=== PATIENT | female | born 1970 | race Caucasian/White ===

== ENCOUNTER → 2018-05-25 08:08 | Outpatient (CLI) | payer BC, SELFPAY ==
--- NOTE | 2018-05-25 08:30 | US_ITS ---
US abdomen limited HISTORY:Right upper quadrant pain. Nausea vomiting ORDERING PHYSICIAN: Roxy Diop PATIENT AGE: 47 years Comparison: None Sagittal, transverse and decubitus imaging of the gallbladder was performed. GALLBLADDER - sludge is clearly seen within the gallbladder but no apparent shadowing stones. No stones are evident. There is no gallbladder wall thickening. Common duct is normal in diameter. Measuring less than 3 mm at hilum of liver. Liver: Unremarkable no focal lesions no bili ductal dilatation portal vein normal direction flow. Pancreas: Unremarkable. Fairly well visualized without the head body and medial tail. Right kidney: Unremarkable appearing. No hydronephrosis. Normal measuring 11.7 seem in length with cortex modest but adequate maintained. IMPRESSION:======= Negative gallbladder ultrasound. No stones evident.
== END ==
PROVIDERS: Family Provider Family Medicine; PCP Family Medicine; Visit Provider Nurse Practitioner Family
DX: R10.10 Upper abdominal pain, unspecified (principal); R11.2 Nausea with vomiting, unspecified
CPT/HCPCS: 76705

== ENCOUNTER → 2018-06-03 12:00 | Outpatient (CLI) | payer BC, SELFPAY ==
--- NOTE | 2018-06-03 12:10 | NM_ITS ---
NM hepatobiliary wo pharm HISTORY: Right upper quadrant pain ITS.REASON: ABD PAIN,N/V ORDERING PHYSICIAN: Charlie Alvarez MD PATIENT AGE: 47 years COMPARISON: None DOSE: 7.07 mCi tc choletec fatty meal ensure. No complaints with fatty meal FINDINGS: Homogeneous activity is present within the hepatic parenchyma. Activity is present in the gallbladder by 15 minutes. Activity is present in the small bowel by 30 minutes. The gallbladder ejection fraction is calculated to be 45% which is within normal limits. The patient did not report pain or other symptoms during CCK infusion. IMPRESSION: Unremarkable hepatobiliary scan and gallbladder ejection fraction. No evidence of common or cystic duct obstruction with normal gallbladder ejection fraction
== END ==
PROVIDERS: Family Provider Family Medicine; PCP Family Medicine; Visit Provider Family Medicine
DX: R10.10 Upper abdominal pain, unspecified (principal); R11.2 Nausea with vomiting, unspecified
CPT/HCPCS: 78226; A9537

== ENCOUNTER 2024-04-27 17:51 | Emergency (ER) | payer BC, SELFPAY ==
[2024-04-27 17:52] VITALS: BP 135/67; PULSE 94; RESP 18; TEMP 36.9; O2SAT 99; BMI 37.4
--- NOTE | 2024-04-27 17:56 | PC.NURSE ---
Davidson ESTRADA at BS for pt eval
--- NOTE | 2024-04-27 18:05 | ED_ITS ---
<Statement entered by Beatriz Lawson DO - 04/27/24 22:07> I was consulted by the MADYSON, and we discussed the complexity of the problems being addressed. I approved the treatment and management plan for this patient's care in the emergency department, thus performing a substantive portion of the medical decision making. Beatriz Lawson DO Discharge Plan Disposition Patient Disposition: Home, Self-Care Condition: Good Referrals Follow up/Referrals: Charlie Alvarez MD [Primary Care Provider] - See instructions Activity Restrictions/Add. Instructions Additional Instructions/Restrictions: Follow-up with your PCP for further workup of lower extremity swelling. Return to ER for any worsening signs or symptoms as needed. Clinical Impressions Clinical Impression: Dependent edema Instructions Patient Instructions: DI for Dependent Edema Discharge ED Provider: Beatriz Lawson General Adult HPI <OSMAN Hu - Last Filed: 04/27/24 21:54> General Chief complaint: Extremity Problem,Nontraumatic Stated complaint: both legs are swelling and painful Time Seen by Provider: 04/27/24 18:00 History of Present Illness HPI narrative: Patient presents for evaluation of bilateral lower extremity swelling. Patient states that she has noticed that her bilateral lower extremities have been swelling and that she has some tenderness. However patient most recently had a vacation trip to [place] however she flew. 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 Patient denies trauma fever chills hemoptysis hematochezia melena nausea vomit diarrhea chest pain or shortness of breath. Related Data Allergies Allergy/AdvReac Type Severity Reaction Status Date / Time shellfish derived Allergy Unknown SWELLS Unverified 10/21/17 15:00 [From SHELLFISH (FOOD/DRUG)] THROAT Sulfa (Sulfonamide Allergy Unknown I-HIVES Unverified 10/21/17 15:00 Antibiotics) [SULFA (SULFONAMIDE ANTIBIOTICS)] From SHELLFISH (FOOD/DRUG) Allergy Unknown SWELLS Uncoded 10/21/17 15:00 THROAT PFSH <OSMAN Hu - Last Filed: 04/27/24 21:54> [facility] Disclaimer: The information contained in this section may have been updated after the patient was seen, as this information can be updated by other users. Social History (Updated 06/25/24 @ 21:54 by OSMAN Hu) Smoking Status: Former smoker alcohol intake: current alcohol intake frequency: holidays/special occasions only current occupational status: employed Travel in the last 8 weeks: Inside the [place] <OSMAN Hu - Last Filed: 04/27/24 21:54> ROS Obtained: Yes Systems reviewed as appropriate & no additional complaints except as documented Physical Exam <OSMAN Hu - Last Filed: 04/27/24 21:54> General General appearance: alert and in no apparent distress Respiratory Respiratory exam: Present normal lung sounds bilaterally Cardiovascular Cardiovascular exam: Present regular rate and normal rhythm Abdominal Exam Abdominal exam: Present soft and normal bowel sounds; Absent tenderness Extremities Exam Extremities exam: Present normal inspection, full ROM and edema (Patient has bilateral, left greater than right pitting edema without evidence of erythema or cellulitis or induration.) Back Exam Back exam: Present normal inspection and full ROM Neurological Exam Neurological exam: Present alert and oriented X3 Medical Decision Making <OSMAN Hu - Last Filed: 04/27/24 21:54> Medical Records Medical records reviewed: Yes I reviewed the patient's medical records. Morgan Inquiry Pt receiving controlled substance: No Vital Signs: 04/27/24 17:52 04/27/24 19:26 04/27/24 19:31 Temperature 98.4 F Temperature Source Oral Pulse Rate 94 H 93 H Pulse Rate [Right] 94 H Respiratory Rate 18 Blood Pressure 115/62 127/71 Blood Pressure [Right Arm] 135/67 Blood Pressure Mean 79 78 Blood Pressure Mean [Right Arm] 89 02 Sat by Pulse Oximetry 99 99 99 Oxygen Delivery Method Room Air 04/27/24 21:04 Temperature 98.0 F Temperature Source Pulse Rate 80 Pulse Rate [Right] Respiratory Rate 20 Blood Pressure 128/79 Blood Pressure [Right Arm] Blood Pressure Mean Blood Pressure Mean [Right Arm] 02 Sat by Pulse Oximetry Oxygen Delivery Method Room Air Lab Data Lab results reviewed: Yes I reviewed the patient's lab results. Lab Results 04/27/24 19:11: Urine Color Yellow, Urine Appearance Clear, Urine pH 6.0, Ur Specific [place] 1.020, Urine Protein Negative, Urine Glucose (UA) Negative, Urine Ketones Negative, Urine Blood Negative, Urine Nitrate Negative, Urine Bilirubin Negative, Urine Urobilinogen 0.2, Ur Leukocyte Esterase Negative, Urine RBC None, Urine WBC None, Ur Squamous Epith Cells 3-5, Urine Bacteria None 04/27/24 20:00: WBC 12.4 H, RBC 4.41, Hgb 13.4, Hct 40.6, MCV 92.2, MCH 30.4, MCHC 33.0, RDW 13.7, Plt Count 456 H, MPV 7.5, Neut % (Auto) 59.0, Lymph % (Auto) 31.3, Creek % (Auto) 5.4, Eos % (Auto) 3.4, Baso % (Auto) 0.9, Neut # (Auto) 7.3, Lymph # (Auto) 3.9, Creek # (Auto) 0.7, Eos # (Auto) 0.4, Baso # (Auto) 0.1, D-Dimer 0.41, Sodium 137, Potassium 4.1, Chloride 105, Carbon Dioxide 23, Anion Gap 13.1, BUN 18 H, Creatinine 1.00, Estimated Creat Clear 107, Estimated GFR 58 L, Est GFR ( Amer) 71, Glucose 107 H, Calcium 9.2, Magnesium 2.0, Total Bilirubin 0.3, AST 30, ALT 32, Alkaline Phosphatase 83, NT-Pro-B Natriuret Pep 43.3, Total Protein 7.2, Albumin 4.1, Globulin 3.1, Albumin/Globulin Ratio 1.3, TSH 2.48 04/27/24 20:00 04/27/24 20:00 Orders (Tests/Meds): ED MEDICATIONS Discontinued Medications Generic Name Dose Route Start Last Admin Trade Name Dmq PRN Reason Stop Dose Admin Acetaminophen 1,000 mg 04/27/24 18:07 04/27/24 18:21 Acetaminophen 500mg Tab PO 04/27/24 18:08 1,000 mg ONCE ONE Administration ORDERS Category Date Time Status Chest XR -- portable [XR chest portable] Stat Exams 04/27/24 18:07 Completed BNP [NT Pro Brain Natriuretic Pep.] Stat Lab 04/27/24 20:00 Completed CBC w/Auto Diff [Complete Blood Count Auto Diff] Stat Lab 04/27/24 20:00 Completed CMP [Comprehensive Metabolic Panel] Stat Lab 04/27/24 20:00 Completed D-Dimer Stat Lab 04/27/24 20:00 Completed Magnesium Stat Lab 04/27/24 20:00 Completed TSH [Thyroid Stimulating Hormone] Stat Lab 04/27/24 20:00 Completed UA [Urinalysis and Microscopic] Stat Lab 04/27/24 19:11 Completed Medical Decision Narrative: In summary patient is a 53-year-old female who presents to the emergency department for evaluation of lower extremity edema. Patient is dynamically stable upon arrival, afebrile. Physical exam is remarkable for bilateral dependent edema that is pitting, left lower extremity greater than right lower extremity. Patient has some Tenderness globally but no focal induration or palpable cords no erythema. Patient is neurovascularly intact distally with good pulses.. Differential diagnosis includes venous insufficiency versus lymphedema versus DVT etc. Initial workup will be conducted with hematologic labs plain film chest x-ray urinalysis. Initial interventions include Lasix Toradol Tylenol. Initial workup reviewed by me shows that her hematologic labs are nonactionable and her plain film chest x-ray shows no acute processes.. Upon repeat evaluation patient did report some improvement in her discomfort but has not been able to notice enough diuresis yet to tell a difference in her feet. Given this patient is appropriate for discharge with close follow-up with her PCP for further workup as an outpatient for dependent edema. Patient verbalized understanding and agreement. <Beatriz Lawson, DO - Last Filed: 04/27/24 22:07> Vital Signs: 04/27/24 17:52 04/27/24 19:26 04/27/24 19:31 Temperature 98.4 F Temperature Source Oral Pulse Rate 94 H 93 H Pulse Rate [Right] 94 H Respiratory Rate 18 Blood Pressure 115/62 127/71 Blood Pressure [Right Arm] 135/67 Blood Pressure Mean 79 78 Blood Pressure Mean [Right Arm] 89 02 Sat by Pulse Oximetry 99 99 99 Oxygen Delivery Method Room Air 04/27/24 21:04 Temperature 98.0 F Temperature Source Pulse Rate 80 Pulse Rate [Right] Respiratory Rate 20 Blood Pressure 128/79 Blood Pressure [Right Arm] Blood Pressure Mean Blood Pressure Mean [Right Arm] 02 Sat by Pulse Oximetry Oxygen Delivery Method Room Air Lab Data Lab Results 04/27/24 19:11: Urine Color Yellow, Urine Appearance Clear, Urine pH 6.0, Ur Specific [place] 1.020, Urine Protein Negative, Urine Glucose (UA) Negative, Urine Ketones Negative, Urine Blood Negative, Urine Nitrate Negative, Urine Bilirubin Negative, Urine Urobilinogen 0.2, Ur Leukocyte Esterase Negative, Urine RBC None, Urine WBC None, Ur Squamous Epith Cells 3-5, Urine Bacteria None 04/27/24 20:00: WBC 12.4 H, RBC 4.41, Hgb 13.4, Hct 40.6, MCV 92.2, MCH 30.4, MCHC 33.0, RDW 13.7, Plt Count 456 H, MPV 7.5, Neut % (Auto) 59.0, Lymph % (Auto) 31.3, Creek % (Auto) 5.4, Eos % (Auto) 3.4, Baso % (Auto) 0.9, Neut # (Auto) 7.3, Lymph # (Auto) 3.9, Creek # (Auto) 0.7, Eos # (Auto) 0.4, Baso # (Auto) 0.1, D-Dimer 0.41, Sodium 137, Potassium 4.1, Chloride 105, Carbon Dioxide 23, Anion Gap 13.1, BUN 18 H, Creatinine 1.00, Estimated Creat Clear 107, Estimated GFR 58 L, Est GFR ( Amer) 71, Glucose 107 H, Calcium 9.2, Magnesium 2.0, Total Bilirubin 0.3, AST 30, ALT 32, Alkaline Phosphatase 83, NT-Pro-B Natriuret Pep 43.3, Total Protein 7.2, Albumin 4.1, Globulin 3.1, Albumin/Globulin Ratio 1.3, TSH 2.48 Orders (Tests/Meds): ED MEDICATIONS Discontinued Medications Generic Name Dose Route Start Last Admin Trade Name Freq PRN Reason Stop Dose Admin Acetaminophen 1,000 mg 04/27/24 18:07 04/27/24 18:21 Acetaminophen 500mg Tab PO 04/27/24 18:08 1,000 mg ONCE ONE Administration ORDERS Category Date Time Status Chest XR -- portable [XR chest portable] Stat Exams 04/27/24 18:07 Completed BNP [NT Pro Brain Natriuretic Pep.] Stat Lab 04/27/24 20:00 Completed CBC w/Auto Diff [Complete Blood Count Auto Diff] Stat Lab 04/27/24 20:00 Completed CMP [Comprehensive Metabolic Panel] Stat Lab 04/27/24 20:00 Completed D-Dimer Stat Lab 04/27/24 20:00 Completed Magnesium Stat Lab 04/27/24 20:00 Completed TSH [Thyroid Stimulating Hormone] Stat Lab 04/27/24 20:00 Completed UA [Urinalysis and Microscopic] Stat Lab 04/27/24 19:11 Completed ECG Data Tracing #1: I reviewed this ECG and interpreted as documented below: Normal sinus rhythm with a ventricular rate of [address] changes concerning for ischemia. Normal axis and intervals. ECG initial impression date: 04/27/24 ECG initial impression time: 18:30 Critical Care <OSMAN Hu - Last Filed: 04/27/24 21:54> Critical Care Time Critical Care Time: No
--- NOTE | 2024-04-27 18:07 | XR_ITS ---
PROCEDURE INFORMATION: Exam: XR Chest Exam date and time: 04/27/2024 6:30 PM Age: 53 years old Clinical indication: Other: Peripheral edema TECHNIQUE: Imaging protocol: Radiologic exam of the chest. Views: 1 view. COMPARISON: No relevant prior studies available. FINDINGS: Lungs: Unremarkable. No consolidation. Pleural spaces: Unremarkable. No pleural effusion. No pneumothorax. Heart/Mediastinum: Unremarkable. No cardiomegaly. Bones/joints: Unremarkable. IMPRESSION: No acute findings.
[2024-04-27] MEDS: ACETAMINOPHEN 500MG TAB 1000 MG PO (18:21)
--- NOTE | 2024-04-27 18:30 | ECG_ITS ---
APPROVED REPORT Exam: Resting ECG HR:85 bpm ECG Measurements Heart Rate 85 AXES MS 172 P 69 QRSd 79 QRS 59 QT 357 T 57 QTc 399 Conclusion SINUS RHYTHM NORMAL ECG Electronically signed by : TOMI GALAN, 04/27/2024 19:59:13
--- NOTE | 2024-04-27 18:36 | PC.NURSE ---
[facility] at BS for XRAY
[2024-04-27 19:20] LABS: Microscopic, Urine URINE MICROSCOPIC (MICROSCOPIC)
[2024-04-27 19:26] VITALS: BP 115/62; PULSE 94; O2SAT 99
[2024-04-27 19:27] LABS: Appearance,Urine CLEAR (Clear); Bilirubin,Urine Negative (Negative); Blood, Urine Negative (Negative); Color,Urine YELLOW (Yellow); Glucose,Urine (UA) Negative (Negative); Ketones,Urine Negative (Negative); Leukocyte Esterase,Urine Negative (Negative); Nitrate,Urine Negative (Negative); Protein,Urine Negative (Negative); Urobilinogen,Urine 0.2 EU/dl (0.2)
[2024-04-27 19:31] VITALS: BP 127/71; PULSE 93; O2SAT 99
[2024-04-27 20:10] LABS: Basophils # 0.1 K/mm3 (0-0.2); Basophils % 0.9 % (0.1-2.0); Eosinophils # 0.4 K/mm3 (0.0-0.4); Eosinophils % 3.4 % (0.1-12.0); Hematocrit 40.6 % (37.0-47.0); Hemoglobin 13.4 g/dL (12.2-16.2); Lymphocytes # 3.9 K/mm3 (0.7-4.5); Lymphocytes % 31.3 % (10-50); Mean Corpuscular Hemoglobin 30.4 pg (27.0-31.2); Mean Corpuscular Volume 92.2 fl (81-99); Mean Platelet Volume 7.5 fl (7.4-10.4); Monocytes # 0.7 K/mm3 (0.1-1.0); Monocytes % 5.4 % (1.7-9.3); Neutrophils # 7.3 K/mm3 (1.8-7.8); Platelet Count 456 K/mm3 (142-424); Red Blood Count 4.41 M/mm3 (4.20-5.40); Red Cell Distribution Width 13.7 % (11.5-17.5); White Blood Count 12.4 K/mm3 (4.8-10.8)
[2024-04-27 20:13] LABS: Chloride 105 mmol/L (98-107); Potassium 4.1 mmoL/L (3.5-5.1); Sodium 137 mmol/L (136-145)
[2024-04-27 20:15] LABS: Alanine Aminotransferase 32 U/L (12-78); Aspartate Amino Transferase 30 U/L (14-36); Blood Urea Nitrogen 18 mg/dl (7-17); Creatinine Clearance Estimated 107 mL/min (50-200); Estimated Glomerular Filt Rate 58 ml/min (>60); GFR (African American) 71 ML/MIN (>60)
[2024-04-27 20:16] LABS: Albumin Level 4.1 g/dl (3.5-5.0); Albumin/Globulin Ratio 1.3 (1.1-1.8); Alkaline Phosphatase 83 U/L (38-126); Anion Gap 13.1 mEq/L (5-15); Bilirubin,Total 0.3 mg/dl (0.2-1.3); Calcium 9.2 mg/dl (8.4-10.2); Carbon Dioxide 23 mmol/L (22.0-30.0); Globulin 3.1 g/dL (1.3-3.2); Glucose 107 mg/dl (74-100); Total Protein,Serum 7.2 g/dl (6.3-8.2)
[2024-04-27 20:21] LABS: D-Dimer 0.41 ug/mL (0.0-0.5)
[2024-04-27 20:26] LABS: NT Pro Brain Natriuretic Pep. 43.3 pg/mL (0-125)
[2024-04-27 20:47] LABS: Thyroid Stimulating Hormone 2.48 uIU/mL (0.465-4.68)
[2024-04-27 21:04] VITALS: BP 128/79; PULSE 80; RESP 20; TEMP 36.7; O2SAT 98
== END 2024-04-27 21:05 | disposition home or self-care (01) ==
PROVIDERS: Physician Assistant; Emergency Provider Emergency Medicine; PCP Family Medicine
DX: R60.0 Localized edema (principal); M79.604 Pain in right leg; M79.605 Pain in left leg
CPT/HCPCS: 71045; 80053; 81001; 83735; 83880; 84443; 85025; 85378; 93005; 99284

== ENCOUNTER 2025-04-04 11:45 | Outpatient (CLI) | payer BC, SELFPAY ==
--- NOTE | 2025-04-04 11:52 | XR_ITS ---
FINAL REPORT TECHNIQUE: Skull series, 4 views CLINICAL HISTORY: Occipital headaches since Friday. Dizziness. Tingling. COMPARISON: None FINDINGS: SKULL SERIES: 4 views of the skull failed to reveal any evidence of fracture. No air-fluid levels are noted in the paranasal sinuses. Postoperative changes are noted to the mandibles bilaterally. IMPRESSION: No acute bony abnormality identified, no air-fluid levels are noted in the paranasal sinuses. Reviewed, Interpreted and Dictated by Shawna Hall MD Transcribed by Marisa Bartlett Authenticated and [facility]
== END 2025-04-04 23:59 | disposition home or self-care (01) ==
LOC: RAD 11:47
PROVIDERS: PCP Family Medicine; Visit Provider Nurse Practitioner Family
DX: R51.9 Headache, unspecified (principal)
CPT/HCPCS: 70260

== ENCOUNTER 2025-04-08 13:44 | Outpatient (CLI) | payer BC, SELFPAY ==
--- NOTE | 2025-04-08 13:51 | US_ITS ---
FINAL REPORT CLINICAL HISTORY: NECK SWELLING COMPARISON: None FINDINGS: Limited sonographic images were obtained of the soft tissues in the neck. The right parotid gland is homogeneous. There is a 1.5 cm lymph node adjacent to the right parotid gland. There are several other mildly enlarged benign-appearing right cervical lymph nodes. Limited evaluation of the right thyroid reveal several right thyroid nodules including colloid cysts. The left parotid gland and left submandibular salivary gland are without abnormality. There is a mildly enlarged 1.8 cm left cervical lymph node. IMPRESSION: Mildly enlarged benign-appearing bilateral cervical lymph nodes are favored to be reactive. Follow-up if indicated. Thyroid nodules. Consider dedicated thyroid ultrasound. Reviewed, Interpreted and Dictated by Shawna Hall MD Transcribed by Ana Morton Authenticated and [facility]
--- OUTSIDE RECORDS SUMMARY | 2025-04-08 13:51 | XMS_ITS | Continuity of Care Document ---
Author Organization [place] - [facility] Address [address] [place] [address] Care Team Providers Care Corporate Executive Name Role Phone KAVYA PRIETO Primary Care Provider [phone] Assessment No assessment recorded. Plan of Treatment Reminders Order Date Submit Date Provider Last Modified By Organization Details Last Modified Time Details Appointments OV EST 20 2024 10:00A M Xavi Clements, DNP, DISABILITY HEARING OFFICER, AXLE POLISHER-C Not available Not available Not available Lab HbA1c (hemoglo bin A1c), blood 2024 025 JAQUAN [facility], [address], [place], [address], 03/25/2025 18:35:58 iron + TIBC + ferritin , serum 2024 025 JAQUAN [facility], [address], [address], [place], [address], 03/25/2025 18:35:55 prealbum in, serum 2024 025 JAQUAN [facility], [address], [address], [place], [address], 03/25/2025 18:36:02 thiamine , QN, blood 2024 025 JAQUAN [facility], [address], [address], [place], [address], 03/25/2025 18:36:01 methylma lonate, QN, serum or plasma 2024 025 JAQUAN [facility], [address], [address], [place], [address], 03/25/2025 18:36:01 vitamin D, 25-hydro xy, total, serum 2024 025 JAQUAN [facility], [address], [address], [place], [address], 03/25/2025 18:36:00 vitamin E, serum 2024 025 JAQUAN [facility], [address], [address], [place], [address], 03/25/2025 18:35:58 vitamin A (retinol ), serum 2024 025 JAQUAN [facility], [address], [address], [place], [address], 03/25/2025 18:36:00 folate, serum 2024 025 JAQUAN [facility], [address], [address], [place], [address], 03/25/2025 18:35:59 CBC w/ auto diff 2024 025 JAQUAN [facility], [address], [address], [place], [address], 03/25/2025 18:35:56 CMP, serum or plasma 2024 025 JAQUAN [facility], [address], [address], [place], [address], 03/25/2025 18:35:57 TSH + free T4, serum 2024 025 JAQUAN [facility], [address], [address], [place], [address], 03/25/2025 18:35:55 lipid panel, serum 2024 025 JAQUAN [facility], [address], [address], [place], [address], 03/25/2025 18:35:57 Referral None recorded . Procedures None recorded . Surgeries None recorded . Imaging None recorded . Medication Orders None recorded . Patient TargetsNo targets recorded. Patient InstructionsNo instructions recorded. Reason for Referral None Reported. Problems Name Problem SNOMED Code Status Onset Date Resolution Date Notes Provider Name and Address Organization Details Recorded Time Folic acid deficiency 746028327 Active 2024 Xavi Clements, YAS, DISABILITY HEARING OFFICER, AXLE POLISHER-C [address] [facility] [address], [place], [address] , [place] - [facility] - [place] & [place] 5 10:41:38 Vitamin D deficiency 37190469 Active 2024 Xavi Clements, YAS, DISABILITY HEARING OFFICER, AXLE POLISHER-C [address] [facility] [address], [place], [address] , [place] - [facility] - [place] & [place] 5 08:34:50 Hypertensive disorder 86950835 Active 2023 KHRIS BUSTOS, AXLE POLISHER [address] [facility], [place], [address] , [place] - [facility] - [place] & [place] 4 12:10:13 Type 2 diabetes mellitus 73998669 Active 2023 KHRIS BUSTOS NP [address], [place], [address] , [place] - [facility] - [place] & [place] 4 12:38:06 Obesity 862604600 Active 2023 KHRIS BUSTOS AXLE POLISHER [address] [facility] [address], [place], [address] , [place] - [facility] - [place] & [place] 4 12:38:14 Hyperlipidemi a 71690119 Active 2023 KHRIS BUSTOS NP [address], [place], [address] , [place] - [facility] - [place] & [place] 4 12:39:19 Morbid obesity 090333639 Active 2023 Xavi Clements, DNP, DISABILITY HEARING OFFICER, AXLE POLISHER-C [address], [place], [address] , [place] - [facility] & [place] 10:52:23 Problem Notes None recorded. Procedures Surgical History Date Name Laterality Status Provider Name and Address Organization Details Recorded Time 06/08/20 24 laparoscopic sleeve gastrectomy completed Michelle Tony [place] - [facility] & [place] 06/15/2024 10:04:04 01/09/20 24 completed Merry RODRIGUEZ - [facility] & [place] 03/17/2024 13:20:02 10/03/20 22 Date of Last Pap Smear completed Merry RODRIGUEZ - [facility] & [place] 03/17/2024 13:20:02 11/03/19 19 Other completed Merry RODRIGUEZ - [facility] & [place] 03/17/2024 13:20:02 11/03/19 18 excision of ganglion cyst completed WILLIAM BUSTOS NP [address], [place], [address], [facility] - [facility] & [place] 02/24/2024 13:03:27 11/03/19 01 Tmj reconstruction completed WILLIAM BUSTOS NP [address], [place], [address], [place] - [facility] & [place] 02/24/2024 13:03:09 11/03/19 01 Head or Neck Surgery completed Merry Barnett [facility] & [place] 03/17/2024 13:20:02 11/03/18 77 Tonsillectomy/Bruno oidectomy completed Merry RODRIGUEZ - [facility] & [place] 03/17/2024 13:20:02 extraction of wisdom tooth completed Karla RODRIGUEZ - [facility] & [place] 02/23/2024 13:23:44 Tonsillectomy completed Karla Mccarthy [facility] & [place] 02/23/2024 13:24:00 Imaging Results None recorded. Procedure Notes None recorded. Medical Equipment None Reported. Allergies Allergen ID Allergen Name Allergen Category Reaction Reaction Severity Criticality Documentation Date Start Date Code Code System Note Provider Name and Address Organization Details Recorded Time 928018 Substance with sulfonami de structure and antibacte rial mechanism of action (substanc e) medicatio n hives nausea severe moderate Not available 02/24/2024 49403 8003 SNOMED JENNIFER [facility] & [place] 11:13:01 073186 shellfish derived food,medi cation anaphylax is severe Not available 02/24/2024 78301 UNK JENNIFER [facility] & [place] 11:15:27 Medications Name Sig Start Date Stop Date Status Note LastModified by Organization Details LastModified Time amoxicillin 500 mg capsule 05/26 completed Not Available Not Available Not Available bupropion HCl SR 150 mg tablet,12 hr sustained-r elease TAKE 1 TABLET BY MOUTH ONCE DAILY IN THE MORNING FOR 90 DAYS active Not Available Not Available No t Available azithromyci n 250 mg tablet 12/13 completed Not Available Not Available Not Available clarithromy angie 500 mg tablet Take 1 tablet every 12 hours by oral route for 14 days. 05/26 completed Not Available Not Available Not Available phentermine 37.5 mg tablet TAKE 1 TABLET BY MOUTH IN THE MORNING AND 1/2 (ONE-HALF ) TAB IN THE MID AFTERNOON 02/23 completed Not Available Not Available Not Available amoxicillin 500 mg tablet Take 2 tablets every 12 hours by oral route for 14 days. 05/26 completed Not Available Not Available Not Available ondansetron 8 mg disintegrat ing tablet PLACE 1 TABLET UNDER THE TONGUE AND ALLOW TO DISSOLVE 2 TIMES EACH DAY NEEDED 09/10 completed Not Available Not Available Not Available gabapentin 300 mg capsule TAKE 1 CAPSULE 3 TIMES EACH DAY FOR 7 DAYS 06/15 completed Not Available Not Available Not Available omeprazole 20 mg capsule,del ayed release TAKE 1 CAPSULE EVERY 12 HOURS active Not Available Not Available No t Available furosemide 20 mg tablet TAKE 1 TABLET BY MOUTH ONCE DAILY 06/15 completed Not Available Not Available Not Available lisinopril 10 mg-hydrochl orothiazide 12.5 mg tablet TAKE 1 TABLET 1 TIME EACH DAY active Not Available Not Available No t Available cholecalcif josé antonio (vitamin D3) 1,250 mcg (50,000 unit) capsule TAKE 1 CAPSULE 1 TIME EACH WEEK 03/21 completed Not Available Not Available Not Available potassium gluconate 595 mg (99 mg) tablet Take by oral route. active Not Available Not Available No t Available Centrum Silver Women active Not Available Not Available Not Available Ozempic 0.25 mg or 0.5 mg (2 mg/3 mL) subcutaneou s pen injector INJECT 0.5 MG SUBCUTANE OUSLY ONCE A WEEK 05/26 completed Not Available Not Available Not Available Vitals Date Recorded Body height Body temperature Body mass index (BMI) Body weight Heart rate Systolic blood pressure Diastolic blood pressure Provider Name and Address Organization Details Last Updated DateTime 5 165.1 cm 98.3 [degF] 32.4 kg/m2 73140.5 1 g 74 /min 123 mm[Hg] 84 mm[Hg] Michelle Chavo [facility] & [place] 08:29:09 Social History Question Answer Notes LastModified by Organizat ion Details LastModified Time Tobacco Smoking Status Former Smoker DARREN COLEMAN MD [address] [facility] [address], [place], [address], [facility] & [place] 05/26/2024 13:05:25 Do You Have An Advance Directive? No [email or web address] Information not available 03/17/2024 Are You Blind Or Do You Have Difficulty Seeing? No [email or web address] Information not available 03/17/2024 What Is Your Level Of Caffeine Consumption? Moderate Information not available 09/10/2024 When Did You Quit Smoking? 1-5yearssince cristobal arriaga Information not available 05/26/2024 What Was The Date Of Your Most Recent Tobacco Screening? 02/21/2024 [email or web address] Information not available 03/17/2024 Are You Passively Exposed To Smoke? Yes [email or web address] Information not available 03/17/2024 How Much Tobacco Do You Smoke? No [email or web address] Information not available 05/26/2024 How Many Years Have You Smoked Tobacco? 20 [email or web address] Information not available 03/17/2024 Sex: Unknown Functional Status Question Answer Note LastModified by Organizat ion Details LastModified Time Do you use any illicit or recreational drugs? No [email or web address] Information not available 02/23/2024 What is your level of alcohol consumption? Occasional [email or web address] Information not available 03/17/2024 Do you or have you ever used smokeless tobacco? Never used smokeless tobacco [email or web address] Information not available 03/17/2024 What is your exercise level? Occasional [email or web address] Information not available 03/17/2024 Mental Status Question Answer Note LastModified by Organization D etails LastModified Time Do you feel stressed (tense, restless, nervous, or anxious, or unable to sleep at night)? [id number] [email or web address] Information not available 03/17/2024 Family History Relationship Description Onset Age of this Age Resolved Age Notes LastModified by Organization Details LastModified Time Maternal Grandmother Disorder of endocrine system pt. added direct ly (02/20) [email or web address] Not available 02/21/2024 13:55:53 Maternal Grandmother Hypertensive disorder pt. added direct ly (02/20) [email or web address] Not available 02/21/2024 13:56:10 Maternal Grandmother Myocardial infarction pt. added direct ly (02/20) [email or web address] Not available 02/21/2024 13:56:24 Maternal Grandmother Cerebrovascu lar accident pt. added direct ly (02/20) [email or web address] Not available 02/21/2024 13:56:51 Maternal Grandmother Heart disease pt. added direct ly (02/20) [email or web address] Not available 02/21/2024 13:57:06 Maternal Aunt Disorder of endocrine system pt. added direct ly (02/20) [email or web address] Not available 02/21/2024 13:55:53 Maternal Aunt Hypertensive disorder pt. added direct ly (02/20) [email or web address] Not available 02/21/2024 13:56:10 Maternal Aunt Cerebrovascu lar accident pt. added direct ly (02/20) [email or web address] Not available 02/21/2024 13:56:52 Maternal Aunt Heart disease pt. added direct ly (02/20) [email or web address] Not available 02/21/2024 13:57:06 Mother Hypertensive disorder pt. added direct ly (02/20) [email or web address] Not available 02/21/2024 13:56:10 Mother Cerebrovascu lar accident pt. added direct ly (02/20) [email or web address] Not available 02/21/2024 13:56:52 Mother Asthma [email or web address] Not availabl e 03/21/2025 08:18:02 Father Hypertensive disorder pt. added direct ly (02/20) [email or web address] Not available 02/21/2024 13:56:10 Father Sleep disorder pt. added direct ly (02/20) [email or web address] Not available 02/21/2024 13:57:28 Brother Hypertensive disorder pt. added direct ly (02/20) [email or web address] Not available 02/21/2024 13:56:10 Maternal Grandfather Hypertensive disorder pt. added direct ly (02/20) [email or web address] Not available 02/21/2024 13:56:10 Paternal Grandmother Hypertensive disorder pt. added direct ly (02/20) [email or web address]-13 Not available 02/21/2024 13:56:10 Paternal Grandmother Myocardial infarction pt. added direct ly (02/20) [email or web address] Not available 02/21/2024 13:56:24 Paternal Grandmother Cerebrovascu lar accident pt. added direct ly (02/20) [email or web address] Not available 02/21/2024 13:56:52 Paternal Grandmother Heart disease pt. added direct ly (02/20) [email or web address] Not available 02/21/2024 13:57:06 Paternal Grandfather Hypertensive disorder pt. added direct ly (02/20) [email or web address]-13 Not available 02/21/2024 13:56:10 Paternal Grandfather Malignant neoplasm of lung [email or web address] Not available 03/03 08:18:02 Medical History Condition Response Obesity Y High Cholesterol N Diabetes Y Hypertension Y Gynecological History Statement/Question Response Abnormal Pap N 01/09/2024 Sexually Active? Y Menses Monthly N Date of Last Pap Smear 10/03/2022 Current Control Method IUD Obstetrics History GPAL:G 0 P 0 0 0 0 Past Encounters Encounter ID Performer Location Encounter Start Date Encounter Closed Date Diagnosis/Indication Diagnosis SNOMED-CT Code Diagnosis ICD10 Code Diagnosis Note [id number] Xavi Clements, DNP, DISABILITY HEARING OFFICER, AXLE POLISHER-C [facility] [address] [place] [address] 03/21/2025 08:16:52 03/21/2025 09:24:23 History of bariatric surgical procedure 478055898 Z98.84 The patient is doing well. The patient is instructed to continue their vitamins as directed. They are to continue advancing their diet as directed. They may start exercising but keep lifting less than 25 pounds for 2 more weeks. I will see them back in 3 weeks or one month from surgery. We will order their first set of labs at that time. I summarized the expectatio ns for the upcoming year. We will check labs at their one month visit from surgery, 3 months from surgery as well as at 6, 9, and 12 months from surgery. These labs will be ordered on the day of their appointmen t. They have the option to come to the appointmen t fasting and labs can be drawn that day at the hospital. If not, I expect these labs to be drawn within the week of ordering them. If they choose to have them drawn at another [facility] they are to make sure that the labs are sent to my office. These labs will be reviewed once received and the patient will be called with any significan t abnormalit ies and how they should be addressed. If they would like a copy of their labs they are welcome to request these and we will send a copy to them. If their labs and vitamin levels are adequate at 12 months then they will need lab checks every 6mth-12mth . They consent to understand this plan and agree to comply. Intentiona l weight loss 776281499 R63.8 History of gastrectomy 502882537 Z90.3 Advised qid intake 50% protein 5321-7398 calories/d y less than 100 carbs/dy Long discussion today of InBody results including PBF(percen t body fat) SMM (skeletal muscle mass) Visceral fat level level BMR Segmental Fat Analysis and Segmental Lean Analysis. Encouraged pt to take minimal calories as per BMR and to anticipate changes in SMM and PBF values not just total weight. Follow-up with Repeat CIRA in 3mth suggested Patient is status post bariatric surgery and at increased risk for vitamin deficienci es and malnutriti on. Bariatric vitamin panel ordered today. Patient will be contacted to correct any vitamin deficienci es. At [facility] risk of nutritional deficit 575917581 Z91.89 Folic acid deficiency 19 5765236 E53.8 Hyperlipidemia 29934321 E78.5 Hypertensive disorder 38 896950 I10 Type 2 josie betes mellitus 04824371 E11.9 Vitamin D deficiency 347 73510 E55.9 Obesity 560437044 E66.9 Health Concerns Section Related Observation LastModified by Organization Detai ls LastModified Time None Recorded Concern Status LastModified by Organization Details LastModified Time None Recorded Payers Encounter Date Sequence Insurance Name Policy Number Policy Rosales Covered Member ID Rosales Member ID Guarantor Name 03/21/2025 1 [place] [id number] 1 Timothy Peace [id number] Timothy Peace Notes Date Note Type Note Provider Name and Address Organization Details Recorded Time 03/21/2025 text/html Patient presents the office today for routine 9 month follow-up status post bariatric gastric sleeve gastrectomy Robotic assisted performed on 2023. Patient doing well. Reports q.i.d. small meal intake. Reports 60-70g/dy protein intake and good hydration.Patient is drinking 64 ounces of water a day.Daily Calories 1800Taking routine vitamins as advised. Hx of folic acid and Vit D deficiencyHeartbethanie rn/gastroesophage al reflux: deniesPt Denies : abdominal pain, prandial issues Nausea, Vomiting, bowel or bladder issuesTotal Weight loss Since last office visit has been 12.9 lbsPt is happy with their quality of life after Weight loss Surgery.Is able to tolerate all foods. Today's InBody reveals a skeletal muscle mass = 59.5 lb,body fat mass = 86.1 lb,BMI = 32.4Percent body fat = 44.2Basal Metabolic Rate = 1437 kilo calories Xavi Clements, DNP, DISABILITY HEARING OFFICER, AXLE POLISHER-C [address], [place], [address], [facility] - [place] - [place] & [place] 03/21/2025 08:55:56 OBGyn Episode No OBEpisode recorded.
--- OUTSIDE RECORDS SUMMARY | 2025-04-08 13:51 | XMS_ITS | Clinical Summary ---
Author Organization [employer] Address [address] [place] [address] Care Team Providers Care Complaint Inspector Name Role Phone Fritz Alvarez MD Primary Care Provider [phone] Encounters Date Type Department Care Team Description 01/24/2025 8:37 AM EDT - 01/24/2025 11:59 PM EDT Hospital Encounter [address] [place] [address] Visit for screening mammogram (Primary Dx) Discharge Disposition: Home or Self Care from Last 3 Months Family History Medical History Relation Name Comments Breast cancer Cousin Breast cancer Maternal Grandmother Relation Name Status Comments Cousin Alive Maternal Grandmother Social History Tobacco Use Types Packs/Day Years Used Date Smoking Tobacco: Never Assessed Interpersonal Safety Answer Date Record ed Family or friends hurt you Not on file 11/13 Family or friends insult you Not on file 09/2024 Family or friends threaten you Not on file 0 11/13/2023 Family or friends scream or curse at you Not on file 11/13/2023 Housing Stability Answer Date Recorded Living situation today Not on file Living situation problems Not on file 2023 Family and Community Support Answer Nael e Recorded Help with Day to Day Activities Not on file 11/13/2023 Feeling Lonely or Isolated Not on file 11/13 Educational Attainment Answer Date Sathish rded Speak language other than Indonesian at home Not on file 11/13/2023 Want help with school or training Not on file 11/13/2023 Depression Answer Date Recorded PHQ-2 Risk Not on file 11/13/2023 Disabilities Answer Date Recorded Difficulty concentrating Not on file 024 Difficulty doing errands alone Not on file 0 11/13/2023 Substance Use Answer Date Recorded Used prescription meds for non-medical reasons N ot on file 11/13/2023 Used illegal drugs past 12 months Not on file 11/13/2023 Comments Unknown Sex and Gender Information Value Date Recorded Sex Assigned at Not on file Legal Sex Female 5:29 PM CDT Gender Identity Not on file Sexual Orientation Not on file Plan of Treatment Upcoming Encounters Date Type Department Care Team (Late st Contact Info) Description 01/30/2026 9:00 AM EDT Appointment [address] [address] Health Maintenance Due Date Last Done Comments CT Colonography 1972 Colonoscopy 1972 Colorectal Cancer Screening 1972 FOBT/FIT 1972 Fit-DNA (Cologuard) 1972 Sigmoidoscopy 1972 Depression Screening (12+) 1984 Tobacco Cessation Counseling and Screening (12+) 1984 HIV Screening 1987 Hepatitis C Screening 1990 DTAP/TDAP/TD VACCINES (1 - Tdap) 1991 Pap Smear 1993 Lipid Panel 2017 Pneumococcal 50+ years (1 of 1 - PCV) 2022 Shingles Vaccine (Zoster) (1 of 2) 2022 COVID-19 VACCINE (4 - 2023-2 5 season) 2024 10/11/2021, 12/20/2020, 11/23/2020 Influenza Vaccine (Season Ended) 2025 Breast Cancer Screening 01/24/2027 01/25/20 25, 01/09/2024, 10/07/2022, Additional history exists Procedures Procedure Name Priority Date/Time Associated Diagnosis Comments MM DIGITAL MAMMO SCREEN WITH CARROL BILATERAL Routine 01/24/2025 8:57 AM EDT Visit for screening mammogram from Last 3 Months Results * MM digital mammo screen with carrol bilateral (01/24/2025 8:57 AM EDT) Anatomical Region Laterality Modality Breast Bilateral Mammography 01/24/2025 6:22 PM EDT Impressions 01/24/2025 6:31 PM EDT No mammographic evidence of malignancy BI-RADS CATEGORY: 2 , BENIGN FINDING(S). RECOMMENDED FOLLOW-UP: Annual mammography A letter including results and recommendations was sent to the patient. Density notification was included for patients with pattern 3 or 4 breast tissue. Patient information was entered into a reminder system with a target due date for the next mammogram. NOTES: Mammography does not detect approximately 10-15% of breast cancers. Physical examination of the breasts by a physician and regular monthly breast self examinations are integral parts of breast cancer screening. A normal mammogram does not exclude breast cancer if there is an abnormal finding on physical examination. When clinically indicated, a biopsy should not be postponed because of a normal mammogram report. Narrative 01/24/2025 6:31 PM EDT BILATERAL SCREENING DIGITAL MAMMOGRAPHY CLINICAL INDICATION: Routine screening TECHNIQUE: Bilateral CC and MLO views were obtained with digital acquisitions with 3D tomosynthesis. The study was read with the assistance of CAD. COMPARISON: Exams dating back to 2020 DENSITY: There are scattered areas of fibroglandular density FINDINGS: There are no spiculated masses, areas of distortion or suspicious calcifications. Right breast masses are unchanged. Areas of focal asymmetry left breast are stable. us Not In System Provider IMG MAMMOGRAPHY ORDERABLE S Final Result from Last 3 Months Insurance BLUE CROSS/BLUE SHIELD Care Teams Complaint Inspector Relationship Specialty Start Date End Date Fritz Alvarez MD [address] [place] [address] PCP - General Family Medicine 10/07/22
--- OUTSIDE RECORDS SUMMARY | 2025-04-08 13:51 | XMS_ITS | Data Portability ---
Author Organization [facility] CARINA Lord [place] [facility] Address [address] [place] [address] Care Team Providers Care Applied Psychology Chair Name Role Phone FRITZ ALVAREZ Primary Care Provider [phone] Assessment No assessment recorded. Plan of Treatment Reminders Order Date Submit Date Provider Last Modified By Organization Details Last Modified Time Details Appointments None record ed. Lab None record ed. Referral None record ed. Procedures None record ed. Surgeries None record ed. Imaging None record ed. Medication Orders None record ed. Patient TargetsNo targets recorded. Patient Instructions Encounter Date Encounter Id Patient Instructions Last Modified By Organization Details Last Modified Time 05/20/2022 [id number] Patient is instructed that it is ok to wash the operative hand with soap and water now that the sutures have been removed, but should not soak the hand in any type of water for 24 hours. Lotion is OK to use after 24 hours, but no Neosporin or other ointments. The 5 pound weight limit is still in effect for the next 4 weeks. Massage over the incision and up to the wrist crease will help to prevent excessive, thick scars. The palm is a callus, so the skin may peel off from around the incision; the patient can trim off any loose, skin with scissors if they need to. The surgical area does not need to be covered, and should not need to use the wrist splint on this side. Continue to do range of motion exercises to maintain or improve motion. She will be scheduled for a 4 week follow-up appointment. cate Not available 05/20/2022 11:09:02 Reason for Referral None Reported. Results Created Date Observation Date Name Description Value Unit Range Abnormal Flag Note LastModifiedBy Organization Detail LastModifiedTime 04/23/20 22 04/23/2022 nerve condu ction study /EMG, upper extre mity (PROC ) No observ ation record edFrederick riely Not Available 2021 12:56:58 Result Notes None recorded. Problems No Known Problems Procedures Surgical History Date Name Laterality Status Provider Name and Address Organization Details Recorded Time 04/23/20 22 Electromyography (EMG) with Nerve Conduction Study (NCV) completed Lexie Thrasher (Nicky) [facility] 04/23/2022 09:57:27 10/18/20 19 OT Therapeutic Exercise completed JANN JOSE, OTR/L, CHT [address] [place], [address], [facility] 10/18/2019 09:40:23 10/18/20 19 OT Manual Therapy completed JANN JOSE OTR/L, CHT [address] [place], [address], [facility] 10/18/2019 09:40:26 10/18/20 19 PT Hot/Cold Pack completed JANN JOSE OTR/L, CHT [address] [place], [address], [facility] 10/18/2019 08:42:45 09/28/20 19 OT Therapeutic Exercise completed JANN JOSE OTR/L, CHT [address] [place], [address], [facility] 09/28/2019 10:58:05 09/28/20 19 OT Manual Therapy completed JANN JOSE OTR/L, CHT [address] [place], [address], [facility] 09/28/2019 10:57:50 09/28/20 19 PT Hot/Cold Pack completed JANN JOSE OTR/L, CHT [address] [place], [address], [facility] 09/28/2019 10:04:39 09/20/20 19 OT Evaluation - Moderate complexity completed JANN JOSE OTR/L, CHT [address] [place], [address], [facility] 09/20/2019 10:27:09 09/15/20 19 Op Note completed CANDELARIO OSORIO MD [facility] [place], [address], [facility] 09/15/2019 13:27:08 Imaging Results None recorded. Procedure Notes None recorded. Medical Equipment None Reported. Allergies Allergen ID Allergen Name Allergen Category Reaction Reaction Severity Criticality Documentation Date Start Date Code Code System Note Provider Name and Address Organization Details Recorded Time 853360 Substance with sulfonami de structure and antibacte rial mechanism of action (substanc e) medicatio n Not available Not available Not available 09/14/2019 37920 8003 SNOMED Karla Canales [facility] 9 08:48:53 097521 shellfish derived food,medi cation Not available Not available Not available 09/14/2019 44110 UNK Karla Canales [facility] 9 08:48:57 Medications Name Sig Start Date Stop Date Status Note LastModified by Organization Details LastModified Time lisinopril 20 mg-hydroch lorothiazi de 12.5 mg tablet Take 1 tablet every day by oral route. active Not Available Not Available No t Available tramadol 50 mg tablet TAKE 1 TABL PO Q 4-6 HRS PRN FOR SEVERE POST SURGICAL PAIN 05/20 completed Not Available Not Available Not Available meloxicam 7.5 mg tablet TAKE 1 TABLE PO QD WITH FOOD REGARDLE SS OF PAIN LEVEL FOR 1 WEEK. THEN TAKE 1 TABLET PO QD ONLY PRN FOR PAIN RELIEF THEREAFT ER 05/20 completed Not Available Not Available Not Available Neurontin 100 mg capsule TAKE 1 CAPSULE PO QHS FOR 1 WEEK 05/20 completed Not Available Not Available Not Available Percocet 5 mg-325 mg tablet Every four to six hours 09/14 completed Duratio n: prn pain;Fr equency : q4-q6h; Alt Frequen cy: prn pain;Me dicatio n Descrip tion: acetami nophen- oxycodo ne; Dosage: 1-2; Route:o ral; refills :0; Quantit y:40 tablet Not Available Not Available Not Available Vitals Date Recorded Body height Body mass index (BMI) Body weight Provider Name and Address Organization Details Last Updated DateTime 04/22/2022 165.1 cm 32.4 kg/m2 78909.51 g Lisa Baez [facility] 04/22/2022 10:33:19 Date Recorded Body height Body mass index (BMI) Body weight Provider Name and Address Organization Details Last Updated DateTime 05/20/2022 165.1 cm 32.4 kg/m2 50937.51 g Rusty Peñaloza [facility] 05/20/2022 09:48:03 Date Recorded Body height Body mass index (BMI) Body weight Provider Name and Address Organization Details Last Updated DateTime 06/19/2022 165.1 cm 32.4 kg/m2 52184.51 g Baltazar Chaiedzphoebe [facility] 06/19/2022 18:01:05 Social History Question Answer Notes LastModified by [employer] Details LastModified Time Tobacco Smoking Status Current Every [facility] 08:49:55 What Is Your Level Of Caffeine Consumption? Moderate Information not available 09/14/2019 Which Of Your Hands Is Dominant? Right Information not available 09/14/2019 Marital Status Informatio n not available 09/14/2019 How Much Tobacco Do You Smoke? 1 PPD Information not available 09/14/2019 How Many Years Have You Smoked Tobacco? 30 Information not available 09/14/2019 Sex: Unknown Functional Status Question Answer Note LastModified by [employer] Details LastModified Time Do you use any illicit or recreational drugs? No Information not available 09/14/2019 What is your level of alcohol consumption? Occasional Information not available 09/14/2019 Are you currently employed? 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 Family History Relationship Description Onset Age of this Age Resolved Age Notes LastModified by Organization Details LastModified Time Father No current problems or disability Not available 09/14 08:49:29 Mother No current problems or disability Not available 09/14 08:49:29 Medical History Condition Response Heart Conditions N Pneumonia Y Heart Attack ([place]) N Diabetes N Bleeding Disorder N Blood Clot N Hypertension Y Gynecological HistoryNo gynecological history recorded. Obstetrics History GPAL:G 0 P 0 0 0 0 Past Encounters Encounter ID Performer Location Encounter Start Date Encounter Closed Date Diagnosis/Indication Diagnosis SNOMED-CT Code Diagnosis ICD10 Code Diagnosis Note [id number] CANDELARIO OSORIO MD [facility]TH[facility] [address] [place] [address] 09/14/2019 08:30:44 09/14/2019 10:31:46 Cubital tunnel syndrome 78659063 G56.22 EMG/NCV (08/11/19) was normal [id number] CANDELARIO OSORIO MD SURGERY SCHEDULE [address] [place] [address] 09/15/2019 12:38:01 09/15/2019 12:40:53 [id number] VIOLA AGUIRRE/L, CHT PHYSICAL THERAPY / HAND [facility]APY [facility] [address] [place] [address] 09/20/2019 09:26:52 09/20/2019 11:19:38 Cubital tunnel syndrome 57758304 G56.22 [id number] AQUILES DEJESUS PA-C [facility] [address] [place] [address] 09/28/2019 09:17:18 09/28/2019 11:30:42 Cubital tunnel syndrome 23981132 G56.22 EMG/NCV (08/11/19) was normal, however, exam findings consistent with diagnosis of Cubital Tunnel Syndrome. Postoperative care 62864 9007 Z48.89 Doing well s/p Left cubital tunnel release in-situ (DOS: 09/15/19) She will continue working with OT and HEP. Patient can gradually resume activity with the hand as tolerated at this time. I discussed scar massage with patient in clinic today. Counseltayler mckeon on continued precaution s discussed at length. Patient will follow-up in [address] Osorio, but will call in the interim with any additional questions or concerns. [id number] JANN K REBECA, OTR/L, CHT PHYSICAL THERAPY / HAND TH[facility]APY [facility] [address] [place] [address] 09/28/2019 09:18:03 09/28/2019 16:06:33 Cubital tunnel syndrome 03171167 G56.22 [id number] JANN JOSE OTR/L, CHT PHYSICAL THERAPY / HAND THERAPY [facility] [address] [place] [address] 10/18/2019 08:39:51 10/18/2019 12:58:23 Cubital tunnel syndrome 54302834 G56.22 [id number] CANDELARIO OSORIO MD [facility]THOPEDI CS [facility] [address] [place] [address] 11/04/2019 09:11:58 11/04/2019 11:27:24 Postoperative care [id number] Z48.89 6 weeks s/p Left cubital tunnel release in-situ (DOS: 09/15/19) [id number] CLAIR DAMIAN MD [facility] [address] [place] [address] 04/22/2022 10:24:44 04/22/2022 11:15:12 Carpal tunnel syndrome of right wrist 0160752108 51386 G56.01 Carpal tunnel release, EMG first Risks and benefits of the surgery were discussed including transient worsening of symptoms, possible failure to relieve symptoms, possible nerve injury, possible infection, possible stiffness, and no guarantees . I discussed soreness in the palm of the hand and swelling in the wrist which may last for several months after surgery. [id number] CORINNA ORTIZ MD [facility] [address] [place] [address] 04/23/2022 08:40:16 04/23/2022 10:22:00 Skin sensation disturbance 48650535 R20.9 [id number] CLAIR DAMIAN MD SURGERY SCHEDULE [address] [place] [address] 05/09/2022 07:25:58 05/09/2022 07:26:53 [id number] DRAGAN RASHID PA-C [facility]I [facility] [address] [place] [facility] 05/20/2022 09:18:01 05/20/2022 09:51:43 Carpal tunnel syndrome of right wrist 5429289379 14537 G56.01 Doing well status post release of the right carpal tunnel. [id number] CLAIR DAMIAN MD [facility] [address] [place] [address] 06/19/2022 17:56:48 06/20/2022 10:50:14 Carpal tunnel syndrome of right wrist 5150161306 41955 G56.01 Extremely satisfied, back to full use, follow-up as needed Health Concerns Section Related Observation LastModified by Organization Detai ls LastModified Time None Recorded Concern Status LastModified by Organization Details LastModified Time None Recorded Advance Directives Directive None Recorded Payers Insurance Date Sequence Insurance Name Policy Number Policy Rosales Covered Member ID Rosales Member ID Guarantor Name 06/16/2022 1 [place] [id number] 1 Timothy L Mynear [id number] Timothy L Mynear 04/20/2022 1 [place] [id number] Timothy Mynear [id number] Timothy L Mynear Notes Date Note Type Note Provider Name and Address Organization Details Recorded Time 2 text/html Primary Care Physician: Fritz Alvarez Hand dominance: RightLocation: Right Hand Pain level: 2 /10 Date of injury:Duration: 30 days Recent Surgery: NoProcedure:Date of surgery:Duration: In office procedure? No Previous upper extremity surgery? 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 Yes Is this injury associated with a Workers Compensation claim? 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 She states that it is affecting the way she is picking things up. She has gotten EMG done in 2019. Intermittent symptoms of numbness and tingling worse when driving, still occurring, with now constant numbness of the thumb and index finger x 30 days CLAIR DAMIAN MD [facility] [place], [address], [facility] 04/22/2022 10:52:43 2 text/html The patient is here for a routine scheduled postoperative follow-up visit status post right carpal tunnel release. She reports improved symptoms. POST OP GLOBAL VISIT DATE OF SURGERY: 05-09-2022 TIME POST SURGERY:10-14 DAYS SURGERY:Right Carpal Tunnel Release INTERVAL HISTORY: PREOP SYMPTOMSBETTER PAIN LEVEL (VAS)1 2 3 4 5 6 7 8 9 1 0 0/10 OVERALL ASSESSMENTIMPROVING NEW SYMPTOMS OR QUESTIONS: Ms. Peace arrives for post op follow up, reports bruising on volar aspect thumb and wrist right side. DRAGAN RASHID PA-C [address] [place] [address], [address], [facility] 05/20/2022 11:09:13 2 text/html POST OP GLOBAL VISIT DATE OF SURGERY: 05-09-2022 TIME POST SURGERY:6 WKS SURGERY:Right Carpal Tunnel Release INTERVAL HISTORY: PREOP SYMPTOMSBETTER PAIN LEVEL (VAS)1 2 3 4 5 6 7 8 9 1 0 0/10 OVERALL ASSESSMENTIMPROVING NEW SYMPTOMS OR QUESTIONS: Ms. Peace, right CTR, No reports of anything. CLAIR DAMIAN MD [address] [place] [address], [phone], [facility] 06/19/2022 18:09:23 OBGyn Episode No OBEpisode recorded.
--- OUTSIDE RECORDS SUMMARY | 2025-04-08 13:51 | XMS_ITS | Referral Summary ---
Author Organization [employer] Address [address] [place] [address] Care Team Providers Care Manager Business Systems Name Role Phone Fritz Alvarez MD Primary Care Provider [phone] Encounters Date Type Department Care Team Description 01/24/2025 8:37 AM EDT - 01/24/2025 11:59 PM EDT Hospital Encounter [facility] Breast [address] [place] [address] Visit for screening mammogram (Primary Dx) Discharge Disposition: Home or Self Care from Last 3 Months Social History Tobacco Use Types Packs/Day Years [...] Date Sathish rded Speak language other than Azeri at home Not on file 11/13/2023 Want [...] Info) Description 01/30/2026 9:00 AM EDT Appointment [address] [place] [address] Procedures Procedure Name Priority Date/Time Associated Diagnosis [...] Months Insurance BLUE CROSS/BLUE SHIELD Care Teams Manager Business Systems Relationship Specialty Start Date End Date Fritz Alvarez MD [address] [place] [address] PCP - General Family Medicine 10/07/22
--- OUTSIDE RECORDS SUMMARY | 2025-04-08 13:52 | XMS_ITS | Data Portability ---
Author Organization [facility] & [place], [facility] ADMIN Address [address] [place] [id number] Care Team Providers Care Volunteer Services Manager Name Role Phone KAVYA PRIETO Primary Care Provider Assessment No assessment recorded. Plan of Treatment Reminders Order Date Submit Date Provider Last Modified By Organization Details Last Modified Time Details Appointments OV EST 20 2024 10:00A M Xavi Clements, DNP, MEDICAL TRANSCRIPTION, JET BLADE POLISHER-C Not available Not available Not available Lab HbA1c (hemoglo bin A1c), blood 2024 025 JAQUAN [facility], [address], [address], [place], [address], 03/25/2025 18:35:58 iron + TIBC + ferritin , serum 2024 025 JAQUAN [facility], [address], [address], [place], [address], 03/25/2025 18:35:55 prealbum in, serum 2024 025 JAQUAN [facility], [address], [address], [place], [address], 03/25/2025 18:36:02 thiamine , QN, blood 2024 025 JAQUAN [facility], [address], [address], [place], [address], 03/25/2025 18:36:01 methylma lonate, QN, serum or plasma 2024 025 JAQUAN [facility], [address], [address], [place], [address], 03/25/2025 18:36:01 vitamin D, 25-hydro xy, total, serum 2024 025 JAQUAN [facility], [address], [address], [place], [address], 03/25/2025 18:36:00 vitamin E, serum 2024 025 JAQUAN [facility], [address], [address], [place], [address], 03/25/2025 18:35:58 vitamin A (retinol ), serum 2024 025 JAQUAN [facility], [address], [address], [place], [address], 03/25/2025 18:36:00 folate, serum 2024 025 JAQUAN [facility], [address], [address], [place], [address], 03/25/2025 18:35:59 CBC w/ auto diff 2024 025 JAQUAN [facility], [address], [address], [place], [address], 03/25/2025 18:35:56 CMP, serum or plasma 2024 025 JAQUAN [facility], [address], [address], [place], [address], 03/25/2025 18:35:57 TSH + free T4, serum 2024 025 JAQUAN [facility], [address], [address], [place], [address], 03/25/2025 18:35:55 lipid panel, serum 2024 025 JAQUAN [facility], [address], [address], [place], [address], 03/25/2025 18:35:57 CBC w/ auto diff 2024 025 JAQUAN [facility], [address], [address], [place], [address], 12/16/2024 20:37:24 CMP, serum or plasma 2024 025 JAQUAN [facility], [address], [address], [place], [address], 12/16/2024 20:37:25 HbA1c (hemoglo bin A1c), blood 2024 025 JAQUAN [facility], [address], [address], [place], [address], 12/16/2024 20:37:29 TSH + free T4, serum 2024 025 JAQUAN [facility], [address], [address], [place], [address], 12/16/2024 20:37:23 prealbum in, serum 2024 025 JAQUAN [facility], [address], [address], [place], [address], 12/16/2024 20:37:35 thiamine , QN, blood 2024 025 JAQUAN [facility], [address], [address], [place], [address], 12/16/2024 20:37:33 methylma lonate, QN, serum or plasma 2024 025 JAQUAN [facility], [address], [address], [place], [address], 12/16/2024 20:37:34 vitamin D, 25-hydro xy, total, serum 2024 025 JAQUAN [facility], [address], [address], [place], [address], 12/16/2024 20:37:32 vitamin E, serum 2024 025 JAQUAN [facility], [address], [address], [place], [address], 12/16/2024 20:37:27 vitamin A (retinol ), serum 2024 025 JAQUAN [facility], [address], [address], [place], [address], 12/16/2024 20:37:31 iron + TIBC + ferritin , serum 2024 025 JAQUAN [facility], [address], [address], [place], [address], 12/16/2024 20:37:22 folate, serum 2024 025 JAQUAN [facility], [address], [address], [place], [address], 12/16/2024 20:37:30 lipid panel, serum 2024 025 JAQUAN [facility], [address], [address], [place], [address], 12/16/2024 20:37:26 HbA1c (hemoglo bin A1c), blood 2023 024 JAQUAN [facility], [address], [address], [place], [address], 09/22/2024 14:36:59 iron + TIBC + ferritin , serum 2023 024 JAQUAN [facility], [address], [address], [place], [address], 09/22/2024 14:36:52 folate, serum 2023 024 JAQUAN [facility], [address], [address], [place], [address], 09/22/2024 14:37:00 prealbum in, serum 2023 024 JAQUAN [facility], [address], [address], [place], [address], 09/22/2024 14:37:05 thiamine , QN, blood 2023 024 JAQUAN [facility], [address], [address], [place], [address], 09/22/2024 14:37:03 methylma lonate, QN, serum or plasma 2023 024 JAQUAN [facility], [address], [address], [place], [address], 09/22/2024 14:37:04 vitamin D, 25-hydro xy, total, serum 2023 024 JAQUAN [facility], [address], [address], [place], [address], 09/22/2024 14:37:02 vitamin E, serum 2023 024 JAQUAN [facility], [address], [address], [place], [address], 09/22/2024 14:36:58 vitamin A (retinol ), serum 2023 024 JAQUAN [facility], [address], [address], [place], [address], 09/22/2024 14:37:01 CBC w/ auto diff 2023 024 JAQUAN [facility], [address], [address], [place], [address], 09/22/2024 14:36:54 CMP, serum or plasma 2023 024 JAQUAN [facility], [address], [address], [place], [address], 09/22/2024 14:36:55 TSH + free T4, serum 2023 024 JAQUAN [facility], [address], [address], [place], [address], 09/22/2024 14:36:53 lipid panel, serum 2023 024 JAQUAN [facility], [address], [address], [place], [address], 09/22/2024 14:36:57 TSH + free T4, serum 2023 024 JAQUAN [facility], [address], [address], [place], [address], 07/15/2024 16:14:28 HbA1c (hemoglo bin A1c), blood 2023 024 JAQUAN [facility], [address], [address], [place], [address], 07/15/2024 16:14:32 iron + TIBC + ferritin , serum 2023 024 JAQUAN [facility], [address], [address], [place], [address], 07/15/2024 16:14:28 folate, serum 2023 024 JAQUAN [facility], [address], [address], [place], [address], 07/15/2024 16:14:32 prealbum in, serum 2023 024 JAQUAN [facility], [address], [address], [place], [address], 07/15/2024 16:14:35 thiamine , QN, blood 2023 024 JAQUAN [facility], [address], [address], [place], [address], 07/15/2024 16:14:34 methylma lonate, QN, serum or plasma 2023 024 JAQUAN [facility], [address], [address], [place], [address], 07/15/2024 16:14:35 vitamin D, 25-hydro xy, total, serum 2023 024 JAQUAN [facility], [address], [address], [place], [address], 07/15/2024 16:14:33 vitamin E, serum 2023 024 [facility], [address], [address], [place], [address], 07/15/2024 16:14:31 vitamin A (retinol ), serum 2023 024 JAQUAN [facility], [address], [address], [place], [address], 07/15/2024 16:14:33 CBC w/ auto diff 2023 024 JAQUAN [facility], [address], [address], [place], [address], 07/15/2024 16:14:29 CMP, serum or plasma 2023 024 JAQUAN [facility], [address], [address], [place], [address], 07/15/2024 16:14:30 lipid panel, serum 2023 024 JAQUAN [facility], [address], [address], [place], [address], 07/15/2024 16:14:30 Referral None recorded . Procedures None recorded . Surgeries None recorded . Imaging None recorded . Medication Orders None recorded . Patient Targets Encounter Date Encounter Id Patient Goals Patient Target Last Modified By Organization Details Last Modified Time 1. Eat 6 times a day2. Work toward 1200 kcal, and 70-100 gm protien3. Increase carbs and healthy fats to meet kcal goals4. Try smoothies5. Continue with physical activity [email or web address] Not available 12/13/2024 15:09:17 Patient InstructionsNo instructions recorded. Reason for Referral None Reported. Results Created Date Observation Date Name Description Value Unit Range Abnormal Flag Note LastModifiedBy Organization Detail LastModifiedTime 07/09/20 24 07/10/2024 FE+TI BC+FE R iron bind.cap.(TI BC) 293 ug/dL 250-45 0 normal Not Available [facility] ([facility]) [address] [facility] [address], [place], [address], 07/15/2024 16:14:27 07/09/20 24 07/10/2024 FE+TI BC+FE R UIBC 228 ug/dL 131-42 5 normal Not Available [facility] ([facility]) [address] [place], [address], 07/15/2024 16:14:27 07/09/20 24 07/10/2024 FE+TI BC+FE R iron 65 ug/dL 27-159 normal Not Available [facility] ([facility]) [address] [facility], [place], [address], 07/15/2024 16:14:27 07/09/20 24 07/10/2024 FE+TI BC+FE R iron saturation 22 % 15-55 normal Not Available [facility] ([facility]) [address] [place], [address], 07/15/2024 16:14:27 07/09/20 24 07/10/2024 FE+TI BC+FE R ferritin 182 NG/mL 15-150 above high normal Not Available [facility] ([facility]) [address] [place], [address], 07/15/2024 16:14:27 07/09/20 24 07/10/2024 TSH+F REE T4 TSH 1.720 uIU/m L 0.450- 4.500 normal Not Available [facility] ([facility]) [address] [place], [address], 07/15/2024 16:14:28 07/09/20 24 07/10/2024 TSH+F REE T4 T4,free(dire ct) 0.99 NG/dL 0.82-1 .77 normal Not Available [facility] ([facility]) [address] [place], [address], 07/15/2024 16:14:28 07/09/20 24 07/10/2024 CBC WITH DIFFE RENTI AL/PL ATELE T WBC 8.1 x10e3 /uL 3.4-10 .8 normal Not Available [facility] ([facility]) [address] [place], [address], 07/15/2024 16:14:29 07/09/20 24 07/10/2024 CBC WITH DIFFE RENTI AL/PL ATELE T RBC 4.63 x10e6 /uL 3.77-5 .28 normal Not Available [facility] ([facility]) [address] [place], [address], 07/15/2024 16:14:29 07/09/20 24 07/10/2024 CBC WITH DIFFE RENTI AL/PL ATELE T hemoglobin 13.4 g/dL 11.1-1 5.9 normal Not Available [facility] ([facility]) [address] [place], [address], 07/15/2024 16:14:29 07/09/20 24 07/10/2024 CBC WITH DIFFE RENTI AL/PL ATELE T hematocrit 41.2 % 34.0-4 6.6 normal Not Available [facility] ([facility]) [address] [place], [address], 07/15/2024 16:14:29 07/09/20 24 07/10/2024 CBC WITH DIFFE RENTI AL/PL ATELE T MCV 89 fL 79-97 normal Not Available [facility] ([facility]) [address] [place], [address], 07/15/2024 16:14:29 07/09/20 24 07/10/2024 CBC WITH DIFFE RENTI AL/PL ATELE T MCH 28.9 pg 26.6-3 3.0 normal Not Available [facility] ([facility]) [address] [place], [address], 07/15/2024 16:14:29 07/09/20 24 07/10/2024 CBC WITH DIFFE RENTI AL/PL ATELE T MCHC 32.5 g/dL 31.5-3 5.7 normal Not Available [facility] ([facility]) [address] [place], [address], 07/15/2024 16:14:29 07/09/20 24 07/10/2024 CBC WITH DIFFE RENTI AL/PL ATELE T RDW 12.3 % 11.7-1 5.4 Not Available [facility] ([facility]) [address] [place], [address], 07/15/2024 16:14:29 07/09/20 24 07/10/2024 CBC WITH DIFFE RENTI AL/PL ATELE T platelets 332 x10e3 /uL 150-45 0 normal Not Available [facility] ([facility]) [address] [place], [address], 07/15/2024 16:14:29 07/09/20 24 07/10/2024 CBC WITH DIFFE RENTI AL/PL ATELE T neutrophils 54 % not estab. normal Not Available [facility] ([facility]) [address] [place], [address], 07/15/2024 16:14:29 07/09/20 24 07/10/2024 CBC WITH DIFFE RENTI AL/PL ATELE T lymphs 37 % not estab. normal Not Available [facility] ([facility]) [address] [place], [address], 07/15/2024 16:14:29 07/09/20 24 07/10/2024 CBC WITH DIFFE RENTI AL/PL ATELE T monocytes 5 % not estab. normal Not Available [facility] ([facility]) [address] [place], [address], 07/15/2024 16:14:29 07/09/20 24 07/10/2024 CBC WITH DIFFE RENTI AL/PL ATELE T eos 3 % not estab. normal Not Available [facility] ([facility]) [address] [place], [address], 07/15/2024 16:14:29 07/09/20 24 07/10/2024 CBC WITH DIFFE RENTI AL/PL ATELE T basos 1 % not estab. normal Not Available [facility] ([facility]) [address] [place], [address], 07/15/2024 16:14:29 07/09/20 24 07/10/2024 CBC WITH DIFFE RENTI AL/PL ATELE T immature cells JET BLADE POLISHER Not Available [facility] ([facility]) [address] [place], [address], 07/15/2024 16:14:29 07/09/20 24 07/10/2024 CBC WITH DIFFE RENTI AL/PL ATELE T neutrophils (absolute) 4.4 x10e3 /uL 1.4-7. 0 normal Not Available [facility] ([facility]) [address] [facility] [address], [place], [address], 07/15/2024 16:14:29 07/09/20 24 07/10/2024 CBC WITH DIFFE RENTI AL/PL ATELE T lymphs (absolute) 3.0 x10e3 /uL 0.7-3. 1 normal Not Available [facility] ([facility]) [address] [place], [address], 07/15/2024 16:14:29 07/09/20 24 07/10/2024 CBC WITH DIFFE RENTI AL/PL ATELE T monocytes(ab solute) 0.4 x10e3 /uL 0.1-0. 9 normal Not Available [facility] ([facility] [place] [facility]) [address] [place], [address], 07/15/2024 16:14:29 07/09/20 24 07/10/2024 CBC WITH DIFFE RENTI AL/PL ATELE T eos (absolute) 0.2 x10e3 /uL 0.0-0. 4 normal Not Available [facility] ([facility]) [address] [place], [address], 07/15/2024 16:14:29 07/09/20 24 07/10/2024 CBC WITH DIFFE RENTI AL/PL ATELE T baso (absolute) 0.1 x10e3 /uL 0.0-0. 2 normal Not Available [facility] ([facility]) [address] [place], [address], 07/15/2024 16:14:29 07/09/20 24 07/10/2024 CBC WITH DIFFE RENTI AL/PL ATELE T immature granulocytes 0 % not estab. Not Available [facility] ([facility]) [address] [facility] [address], [place], [address], 07/15/2024 16:14:29 07/09/20 24 07/10/2024 CBC WITH DIFFE RENTI AL/PL ATELE T immature grans (abs) 0.0 x10e3 /uL 0.0-0. 1 Not Available [facility] ([facility]) [address] [facility], [place], [address], 07/15/2024 16:14:29 07/09/20 24 07/10/2024 CBC WITH DIFFE RENTI AL/PL ATELE T NRBC JET BLADE POLISHER Not Available [facility] ([facility]) [address] [facility], [place], [address], 07/15/2024 16:14:29 07/09/20 24 07/10/2024 CBC WITH DIFFE RENTI AL/PL ATELE T hematology comments: JET BLADE POLISHER Not Available [facility] ([facility]) [address] [facility], [place], [address], 07/15/2024 16:14:29 07/09/20 24 07/10/2024 COMP. METAB OLIC PANEL (14) glucose 120 mg/dL 70-99 above high normal Not Available [facility] ([facility]) [address] [facility] [address], [place], [address], 07/15/2024 16:14:30 07/09/20 24 07/10/2024 COMP. METAB OLIC PANEL (14) BUN 14 mg/dL 6-24 normal Not Available [facility] ([facility]) [address] [place], [address], 07/15/2024 16:14:30 07/09/20 24 07/10/2024 COMP. METAB OLIC PANEL (14) creatinine 0.87 mg/dL 0.57-1 .00 normal Not Available [facility] ([facility]) [address] [facility], [place], [address], 07/15/2024 16:14:30 07/09/20 24 07/10/2024 COMP. METAB OLIC PANEL (14) eGFR 81 mL/mi n/1.7 3 >59 normal Not Available [facility] ([facility]) [address] [facility] [address], [place], [address], 07/15/2024 16:14:30 07/09/20 24 07/10/2024 COMP. METAB OLIC PANEL (14) BUN/creatini ne ratio 16 9-23 normal Not Available [facility] ([facility]) [address] [facility] [place], [address], 07/15/2024 16:14:30 07/09/20 24 07/10/2024 COMP. METAB OLIC PANEL (14) sodium 140 mmol/ L 134-14 4 normal Not Available [facility] ([facility]) [address] [facility] [place], [address], 07/15/2024 16:14:30 07/09/20 24 07/10/2024 COMP. METAB OLIC PANEL (14) potassium 3.5 mmol/ L 3.5-5. 2 normal Not Available [facility] ([facility]) [address] [facility] [address], [place], [address], 07/15/2024 16:14:30 07/09/20 24 07/10/2024 COMP. METAB OLIC PANEL (14) chloride 102 mmol/ L 96-106 normal Not Available [facility] ([facility]) [address] [facility] [place], [address], 07/15/2024 16:14:30 07/09/20 24 07/10/2024 COMP. METAB OLIC PANEL (14) carbon dioxide, total 20 mmol/ L 20-29 normal Not Available [facility] ([facility]) [address] [facility] [place], [address], 07/15/2024 16:14:30 07/09/20 24 07/10/2024 COMP. METAB OLIC PANEL (14) calcium 9.5 mg/dL 8.7-10 .2 normal Not Available [facility] ([facility]) [address] [place], [address], 07/15/2024 16:14:30 07/09/20 24 07/10/2024 COMP. METAB OLIC PANEL (14) protein, total 6.9 g/dL 6.0-8. 5 normal Not Available [facility] ([facility]) [address] [place], [address], 07/15/2024 16:14:30 07/09/20 24 07/10/2024 COMP. METAB OLIC PANEL (14) albumin 4.3 g/dL 3.8-4. 9 normal Not Available [facility] ([facility]) [address] [place], [address], 07/15/2024 16:14:30 07/09/20 24 07/10/2024 COMP. METAB OLIC PANEL (14) globulin, total 2.6 g/dL 1.5-4. 5 Not Available [facility] ([facility]) [address] [facility] [place], [address], 07/15/2024 16:14:30 07/09/20 24 07/10/2024 COMP. METAB OLIC PANEL (14) bilirubin, total 0.3 mg/dL 0.0-1. 2 normal Not Available [facility] ([facility]) [address] [facility] [place], [address], 07/15/2024 16:14:30 07/09/20 24 07/10/2024 COMP. METAB OLIC PANEL (14) alkaline phosphatase 92 IU/L 44-121 normal Not Available [facility] ([facility]) [address] [place], [address], 07/15/2024 16:14:30 07/09/20 24 07/10/2024 COMP. METAB OLIC PANEL (14) AST (SGOT) 26 IU/L 0-40 normal Not Available [facility] ([facility]) [address] [facility] [place], [address], 07/15/2024 16:14:30 07/09/20 24 07/10/2024 COMP. METAB OLIC PANEL (14) ALT (SGPT) 28 IU/L 0-32 normal Not Available [facility] ([facility]) [address] [facility] [place], [address], 07/15/2024 16:14:30 07/09/20 24 07/10/2024 LIPID PANEL cholesterol, total 186 mg/dL 100-19 9 normal Not Available [facility] ([facility]) [address] [facility] [place], [address], 07/15/2024 16:14:30 07/09/20 24 07/10/2024 LIPID PANEL triglyceride s 175 mg/dL 0-149 above high normal Not Available [facility] ([facility]) [address] [facility] [place], [address], 07/15/2024 16:14:30 07/09/20 24 07/10/2024 LIPID PANEL HDL cholesterol 45 mg/dL >39 normal Not Available [facility] ([facility]) [address] [place], [address], 07/15/2024 16:14:30 07/09/20 24 07/10/2024 LIPID PANEL VLDL cholesterol france 31 mg/dL 5-40 Not Available [facility] ([facility]) [address] [place], [address], 07/15/2024 16:14:30 07/09/20 24 07/10/2024 LIPID PANEL LDL chol calc ([facility]) 110 mg/dL 0-99 above high normal Not Available [facility] ([facility]) [address] [place], [address], 07/15/2024 16:14:30 07/09/20 24 07/10/2024 LIPID PANEL LDL calc comment: JET BLADE POLISHER Not Available [facility] ([facility]) [address] [facility], [place], [address], 07/15/2024 16:14:30 07/09/20 24 07/15/2024 VITAM IN E vitamin E(alpha tocopherol) 7.2 mg/L 7.0-25 .1 Not Available [facility] ([facility]) [address] [facility], [place], [address], 07/15/2024 16:14:31 07/09/20 24 07/15/2024 VITAM IN E vitamin E(gamma tocopherol) 2.5 mg/L 0.5-5. 5 Refer ence inter vals for alpha and gamma -toco phero l deter mined from [facility] and Nutri tion Exami natio n Surve y, 2004- 2005. Indiv idual s with alpha -toco phero l level s less than 5.0 mg/L are consi dered vitam in E defic ient. Not Available [facility] ([facility]) [address] [facility], [place], [address], 07/15/2024 16:14:31 07/09/20 24 07/10/2024 HEMOG LOBIN A1C hemoglobin A1C 6.1 % 4.8-5. 6 above high normal Predi abete s: 5.7 - 6.4 Diabe vinay: >6.4 Glyce ren contr ol for adult s with diabe vinay: <7.0 Not Available [facility] ([facility]) [address] [facility], [place], [address], 07/15/2024 16:14:31 07/09/20 24 07/10/2024 FOLAT E (FOLI C ACID) , SERUM folate (folic acid), serum 7.5 NG/mL >3.0 normal A serum folat e norberto ntrat ion of less than 3.1 ng/mL is consi dered to repre sent clini france defic iency . Not Available [facility] ([facility]) [address] [facility], [place], [address], 07/15/2024 16:14:32 07/09/20 24 07/15/2024 VITAM IN A, SERUM vitamin A 40.3 ug/dL 20.1-6 2.0 Refer ence inter vals for vitam in A deter mined from [facility] inter nal studi es. Indiv idual s with vitam in A less than 20 ug/dL are consi dered vitam in A defic ient and those with serum norberto ntrat ions less than 10 ug/dL are consi dered sever rosa defic ient. This test was devel oped and its perfo rmanc e vivian cteri stics deter mined by [facility]. It has not been clear ed or appro jan by the Food and Drug Admin istra tion. Not Available [facility] ([facility]) [address] [facility], [place], [address], 07/15/2024 16:14:33 07/09/20 24 07/10/2024 VITAM IN D, 25-HY DROXY vitamin D, 25-hydroxy 31.3 NG/mL 30.0-1 00.0 Vitam in D defic iency has been defin ed by the Insti tute of Medic ine and an Endoc rine Socie ty pract ice guide line as a level of serum 25-OH vitam in D less than 20 ng/mL (1,2) . The Endoc rine Socie ty went on to furth er defin e vitam in D insuf ficie ncy as a level betwe en 21 and 29 ng/mL (2). 1. IOM (Inst itute of Medic ine). 2009. Dieta ry refer ence intak es for calci um and D. Monica lewis [place]: The Natio nal [facility] Press . 2. Zoey fields [place], Binjose elias ey [place], Maddie off-F errar i ALEX, et al. Evalu ation , treat ment, and preve ntion of vitam in D defic iency : an Endoc rine Socie ty clini france pract ice guide line. JCEM. 2010; 96(7) :1911 -30. Not Available [facility] ([facility]) [address] [facility], [place], [address], 07/15/2024 16:14:33 07/09/20 24 07/13/2024 VITAM IN B1 (THIA MINE) , BLOOD vit. B1, whole blood 112.2 nmol/ L 66.5-2 00.0 Not Available [facility] ([facility]) [address] [place], [address], 07/15/2024 16:14:34 07/09/20 24 07/14/2024 METHY LMALO MARY ACID, SERUM methylmaloni c acid, serum 185 nmol/ L 0-378 Not Available [facility] ([facility]) [address] [place], [address], 07/15/2024 16:14:35 07/09/20 24 07/10/2024 PREAL BUMIN prealbumin 19 mg/dL 10-36 Not Available [facility] ([facility]) [address] [place], [address], 07/15/2024 16:14:35 09/10/20 24 09/11/2024 FE+TI BC+FE R iron bind.cap.(TI BC) 318 ug/dL 250-45 0 normal Not Available [facility] ([facility]) [address] [place], [address], 09/22/2024 14:36:52 09/10/20 24 09/11/2024 FE+TI BC+FE R UIBC 253 ug/dL 131-42 5 normal Not Available [facility] ([facility]) [address] [place], [address], 09/22/2024 14:36:52 09/10/20 24 09/11/2024 FE+TI BC+FE R iron 65 ug/dL 27-159 normal Not Available [facility] ([facility]) [address] [place], [address], 09/22/2024 14:36:52 09/10/20 24 09/11/2024 FE+TI BC+FE R iron saturation 20 % 15-55 normal Not Available [facility] ([facility]) [address] [facility], [place], [address], 09/22/2024 14:36:52 09/10/20 24 09/11/2024 FE+TI BC+FE R ferritin 128 NG/mL 15-150 normal Not Available [facility] ([facility]) [address] [facility], [place], [address], 09/22/2024 14:36:52 09/10/20 24 09/11/2024 TSH+F REE T4 TSH 1.950 uIU/m L 0.450- 4.500 normal Not Available [facility] ([facility]) [address] [place], [address], 09/22/2024 14:36:53 09/10/2009/11/2024 TSH+F REE T4 T4,free(dire ct) 0.94 NG/dL 0.82-1 .77 normal Not Available [facility] ([facility]) [address] [place], [address], 09/22/2024 14:36:53 09/10/2009/10/2024 CBC WITH DIFFE RENTI AL/PL ATELE T WBC 8.0 x10e3 /uL 3.4-10 .8 normal Eff ectiv e Decem hammad 2023 profi leroy [id number] WBC will be made* * non-o rdera ble as a stand -sesar e order code. Not Available [facility] ([facility]) [address] [place], [address], 09/22/2024 14:36:54 09/10/2009/10/2024 CBC WITH DIFFE RENTI AL/PL ATELE T RBC 4.67 x10e6 /uL 3.77-5 .28 normal Not Available [facility] (Our [facility]) [address] [facility], [place], [address], 09/22/2024 14:36:54 09/10/20 24 09/10/2024 CBC WITH DIFFE RENTI AL/PL ATELE T hemoglobin 13.5 g/dL 11.1-1 5.9 normal Not Available [facility] ([facility]) [address] [place], [address], 09/22/2024 14:36:54 09/10/20 24 09/10/2024 CBC WITH DIFFE RENTI AL/PL ATELE T hematocrit 41.3 % 34.0-4 6.6 normal Not Available [facility] ([facility]) [address] [place], [address], 09/22/2024 14:36:54 09/10/20 24 09/10/2024 CBC WITH DIFFE RENTI AL/PL ATELE T MCV 88 fL 79-97 normal Not Available [facility] ([facility]) [address] [place], [address], 09/22/2024 14:36:54 09/10/20 24 09/10/2024 CBC WITH DIFFE RENTI AL/PL ATELE T MCH 28.9 pg 26.6-3 3.0 normal Not Available [facility] ([facility]) [address] [place], [address], 09/22/2024 14:36:54 09/10/20 24 09/10/2024 CBC WITH DIFFE RENTI AL/PL ATELE T MCHC 32.7 g/dL 31.5-3 5.7 normal Not Available [facility] ([facility]) [address] [place], [address], 09/22/2024 14:36:54 09/10/20 24 09/10/2024 CBC WITH DIFFE RENTI AL/PL ATELE T RDW 12.4 % 11.7-1 5.4 Not Available [facility] ([facility]) [address] [facility], [place], [address], 09/22/2024 14:36:54 09/10/20 24 09/10/2024 CBC WITH DIFFE RENTI AL/PL ATELE T platelets 425 x10e3 /uL 150-45 0 normal Not Available [facility] ([facility]) [address] [facility], [place], [address], 09/22/2024 14:36:54 09/10/20 24 09/10/2024 CBC WITH DIFFE RENTI AL/PL ATELE T neutrophils 57 % not estab. normal Not Available [facility] ([facility]) [address] [facility], [place], [address], 09/22/2024 14:36:54 09/10/20 24 09/10/2024 CBC WITH DIFFE RENTI AL/PL ATELE T lymphs 35 % not estab. normal Not Available [facility] ([facility]) [address] [facility], [place], [address], 09/22/2024 14:36:54 09/10/20 24 09/10/2024 CBC WITH DIFFE RENTI AL/PL ATELE T monocytes 5 % not estab. normal Not Available [facility] ([facility]) [address] [facility], [place], [address], 09/22/2024 14:36:54 09/10/20 24 09/10/2024 CBC WITH DIFFE RENTI AL/PL ATELE T eos 2 % not estab. normal Not Available [facility] ([facility]) [address] [facility], [place], [address], 09/22/2024 14:36:54 09/10/20 24 09/10/2024 CBC WITH DIFFE RENTI AL/PL ATELE T basos 1 % not estab. normal Not Available [facility] ([facility]) [address] [facility], [place], [address], 09/22/2024 14:36:54 09/10/20 24 09/10/2024 CBC WITH DIFFE RENTI AL/PL ATELE T immature cells [employer] Not Available [facility] ([facility]) [address] [facility], [place], [address], 09/22/2024 14:36:54 09/10/20 24 09/10/2024 CBC WITH DIFFE RENTI AL/PL ATELE T neutrophils (absolute) 4.6 x10e3 /uL 1.4-7. 0 normal Not Available [facility] ([facility]) [address] [facility], [place], [address], 09/22/2024 14:36:54 09/10/20 24 09/10/2024 CBC WITH DIFFE RENTI AL/PL ATELE T lymphs (absolute) 2.8 x10e3 /uL 0.7-3. 1 normal Not Available [facility] ([facility]) [address] [place], [address], 09/22/2024 14:36:54 09/10/20 24 09/10/2024 CBC WITH DIFFE RENTI AL/PL ATELE T monocytes(ab solute) 0.4 x10e3 /uL 0.1-0. 9 normal Not Available [facility] ([facility]) [address] [place], [address], 09/22/2024 14:36:54 09/10/20 24 09/10/2024 CBC WITH DIFFE RENTI AL/PL ATELE T eos (absolute) 0.2 x10e3 /uL 0.0-0. 4 normal Not Available [facility] ([facility]) [address] [facility], [place], [address], 09/22/2024 14:36:54 09/10/20 24 09/10/2024 CBC WITH DIFFE RENTI AL/PL ATELE T baso (absolute) 0.1 x10e3 /uL 0.0-0. 2 normal Not Available [facility] ([facility]) [address] [facility], [place], [address], 09/22/2024 14:36:54 09/10/20 24 09/10/2024 CBC WITH DIFFE RENTI AL/PL ATELE T immature granulocytes 0 % not estab. Not Available [facility] ([facility]) [address] [facility], [place], [address], 09/22/2024 14:36:54 09/10/20 24 09/10/2024 CBC WITH DIFFE RENTI AL/PL ATELE T immature grans (abs) 0.0 x10e3 /uL 0.0-0. 1 Not Available [facility] ([facility]) [address] [facility], [place], [address], 09/22/2024 14:36:54 09/10/20 24 09/10/2024 CBC WITH DIFFE RENTI AL/PL ATELE T NRBC [employer] Not Available [facility] ([facility]) [address] [facility], [place], [address], 09/22/2024 14:36:54 09/10/20 24 09/10/2024 CBC WITH DIFFE RENTI AL/PL ATELE T hematology comments: J[employer] Not Available [facility] ([facility]) [address] [facility], [place], [address], 09/22/2024 14:36:54 09/10/20 24 09/11/2024 COMP. METAB OLIC PANEL (14) glucose 99 mg/dL 70-99 normal Not Available [facility] ([facility]) [address] [place], [address], 09/22/2024 14:36:55 09/10/20 24 09/11/2024 COMP. METAB OLIC PANEL (14) BUN 12 mg/dL 6-24 normal Not Available [facility] ([facility]) [address] [facility] [place], [address], 09/22/2024 14:36:55 09/10/20 24 09/11/2024 COMP. METAB OLIC PANEL (14) creatinine 0.96 mg/dL 0.57-1 .00 normal Not Available [facility] ([facility]) [address] [facility] [place], [address], 09/22/2024 14:36:55 09/10/20 24 09/11/2024 COMP. METAB OLIC PANEL (14) eGFR 71 mL/mi n/1.7 3 >59 normal Not Available [facility] ([facility]) [address] [facility] [place], [address], 09/22/2024 14:36:55 09/10/20 24 09/11/2024 COMP. METAB OLIC PANEL (14) BUN/creatini ne ratio 13 9-23 normal Not Available [facility] ([facility]) [address] [facility] [place], [address], 09/22/2024 14:36:55 09/10/20 24 09/11/2024 COMP. METAB OLIC PANEL (14) sodium 139 mmol/ L 134-14 4 normal Not Available [facility] ([facility]) [address] [facility] [place], [address], 09/22/2024 14:36:55 09/10/20 24 09/11/2024 COMP. METAB OLIC PANEL (14) potassium 3.9 mmol/ L 3.5-5. 2 normal Not Available [facility] ([facility]) [address] [facility] [place], [address], 09/22/2024 14:36:55 09/10/20 24 09/11/2024 COMP. METAB OLIC PANEL (14) chloride 103 mmol/ L 96-106 normal Not Available [facility] ([facility]) [address] [place], [address], 09/22/2024 14:36:55 09/10/20 24 09/11/2024 COMP. METAB OLIC PANEL (14) carbon dioxide, total 20 mmol/ L 20-29 normal Not Available [facility] ([facility]) [address] [place], [address], 09/22/2024 14:36:55 09/10/20 24 09/11/2024 COMP. METAB OLIC PANEL (14) calcium 9.6 mg/dL 8.7-10 .2 normal Not Available [facility] ([facility]) [address] [place], [address], 09/22/2024 14:36:55 09/10/20 24 09/11/2024 COMP. METAB OLIC PANEL (14) protein, total 6.9 g/dL 6.0-8. 5 normal Not Available [facility] ([facility]) [address] [place], [address], 09/22/2024 14:36:55 09/10/20 24 09/11/2024 COMP. METAB OLIC PANEL (14) albumin 4.3 g/dL 3.8-4. 9 normal Not Available [facility] ([facility]) [address] [place], [address], 09/22/2024 14:36:55 09/10/20 24 09/11/2024 COMP. METAB OLIC PANEL (14) globulin, total 2.6 g/dL 1.5-4. 5 Not Available [facility] ([facility]) [address] [place], [address], 09/22/2024 14:36:55 09/10/20 24 09/11/2024 COMP. METAB OLIC PANEL (14) bilirubin, total 0.3 mg/dL 0.0-1. 2 normal Not Available [facility] ([facility]) [address] [place], [address], 09/22/2024 14:36:55 09/10/20 24 09/11/2024 COMP. METAB OLIC PANEL (14) alkaline phosphatase 115 IU/L 44-121 normal Not Available [facility] ([facility]) [address] [place], [address], 09/22/2024 14:36:55 09/10/20 24 09/11/2024 COMP. METAB OLIC PANEL (14) AST (SGOT) 13 IU/L 0-40 normal Not Available [facility] ([facility]) [address] [place], [address], 09/22/2024 14:36:55 09/10/20 24 09/11/2024 COMP. METAB OLIC PANEL (14) ALT (SGPT) 15 IU/L 0-32 normal Not Available [facility] ([facility]) [address] [place], [address], 09/22/2024 14:36:55 09/10/20 24 09/11/2024 LIPID PANEL cholesterol, total 184 mg/dL 100-19 9 normal Not Available [facility] ([facility]) [address] [place], [address], 09/22/2024 14:36:56 09/10/20 24 09/11/2024 LIPID PANEL triglyceride s 123 mg/dL 0-149 normal Not Available [facility] ([facility]) [address] [place], [address], 09/22/2024 14:36:56 09/10/20 24 09/11/2024 LIPID PANEL HDL cholesterol 43 mg/dL >39 normal Not Available [facility] ([facility]) [address] [place], [address], 09/22/2024 14:36:56 09/10/20 24 09/11/2024 LIPID PANEL VLDL cholesterol france 22 mg/dL 5-40 Not Available [facility] ([facility]) [address] [facility], [place], [address], 09/22/2024 14:36:56 09/10/20 24 09/11/2024 LIPID PANEL LDL chol calc ([facility]) 119 mg/dL 0-99 above high normal Not Available [facility] ([facility]) [address] [place], [address], 09/22/2024 14:36:56 09/10/20 24 09/11/2024 LIPID PANEL LDL calc comment: JET [employer] Not Available [facility] ([facility]) [address] [facility], [place], [address], 09/22/2024 14:36:56 09/10/20 24 09/22/2024 VITAM IN E vitamin E(alpha tocopherol) 9.5 mg/L 7.0-25 .1 Not Available [facility] ([facility]) [address] [facility], [place], [address], 09/22/2024 14:36:58 09/10/20 24 09/22/2024 VITAM IN E vitamin E(gamma tocopherol) 3.2 mg/L 0.5-5. 5 Refer ence inter vals for alpha and gamma -toco phero l deter mined from [facility]ami natio n Surve y, 2004- 2005. Indiv idual s with alpha -toco phero l level s less than 5.0 mg/L are consi dered vitam in E defic ient. Not Available [facility] ([facility]) [address] [facility], [place], [address], 09/22/2024 14:36:58 09/10/20 24 09/11/2024 HEMOG LOBIN A1C hemoglobin A1C 6.0 % 4.8-5. 6 above high normal Predi abete s: 5.7 - 6.4 Diabe vinay: >6.4 Glyce ren contr ol for adult s with diabe vinay: <7.0 Not Available [facility] ([facility]) [address] [facility], [place], [address], 09/22/2024 14:36:59 09/10/20 24 09/11/2024 FOLAT E (FOLI C ACID) , SERUM folate (folic acid), serum 2.3 NG/mL >3.0 below low normal A serum folat e norberto ntrat ion of less than 3.1 ng/mL is consi dered to repre sent clini france defic iency . Not Available [facility] ([facility]) [address] [facility], [place], [address], 09/22/2024 14:37:00 09/10/20 24 09/22/2024 VITAM IN A, SERUM vitamin A 35.9 ug/dL 20.1-6 2.0 Refer ence inter vals for vitam in A deter mined from [facility] inter nal studi es. Indiv idual s with vitam in A less than 20 ug/dL are consi dered vitam in A defic ient and those with serum norberto ntrat ions less than 10 ug/dL are consi dered sever rosa defic ient. This test was ketan irene and its perfo rmanc e vivian cteri stics deter mined by [facility]. It has not been clear ed or appro jan by the Food and Drug Admin istra tion. Not Available [facility] ([facility]) [address] [facility] [address], [place], [address], 09/22/2024 14:37:01 09/10/20 24 09/11/2024 VITAM IN D, 25-HY DROXY vitamin D, 25-hydroxy 30.3 NG/mL 30.0-1 00.0 Vitam in D defic iency has been defin ed by the Insti tute of Medic ine and an Endoc rine Socie ty pract ice guide line as a level of serum 25-OH vitam in D less than 20 ng/mL (1,2) . The Endoc rine Socie ty went on to furth er defin e vitam in D insuf ficie ncy as a level betwe en and 29 ng/mL (2). 1. IOM (Inst itute of Medic ine). 2010. Dieta ry refer ence yasmeen es for calci um and D. Monica lewis [place]: [facility] . 2. Holic k MF, [place], Bisch off-F errar i ALEX, et al. Evalu ation , treat ment, and preve ntion of vitam in D defic iency : an Endoc rine Socie ty clini france pract ice guide line. JCEM. 2010; 96(7) :1911 -30. Not Available [facility] ([facility]) [address] [place], [address], 09/22/2024 14:37:02 09/10/20 24 09/16/2024 VITAM IN B1 (THIA MINE) , BLOOD vit. B1, whole blood 100.5 nmol/ L 66.5-2 00.0 Not Available [facility] ([facility]) [address] [place], [address], 09/22/2024 14:37:03 09/10/20 24 09/17/2024 METHY LMALO MARY ACID, SERUM methylmaloni c acid, serum 194 nmol/ L 0-378 Not Available [facility] ([facility]) [address] [place], [address], 09/22/2024 14:37:04 09/10/20 24 09/11/2024 PREAL BUMIN prealbumin 18 mg/dL 10-36 Not Available [facility] ([facility]) [address] [place], [address], 09/22/2024 14:37:05 12/13/19 25 12/14/2024 FE+TI BC+FE R iron bind.cap.(TI BC) 326 ug/dL 250-45 0 normal Not Available [facility] ([facility]) [address] [place], [address], 12/16/2024 20:37:21 12/13/19 25 12/14/2024 FE+TI BC+FE R UIBC 222 ug/dL 131-42 5 normal Not Available [facility] ([facility]) [address] [place], [address], 12/16/2024 20:37:21 12/13/19 25 12/14/2024 FE+TI BC+FE R iron 104 ug/dL 27-159 normal Not Available [facility] ([facility]) [address] [place], [address], 12/16/2024 20:37:21 12/13/19 25 12/14/2024 FE+TI BC+FE R iron saturation 32 % 15-55 normal Not Available [facility] ([facility]) [address] [place], [address], 12/16/2024 20:37:21 12/13/19 25 12/14/2024 FE+TI BC+FE R ferritin 173 NG/mL 15-150 above high normal Not Available [facility] ([facility]) [address] [place], [address], 12/16/2024 20:37:21 12/13/19 25 12/14/2024 TSH+F REE T4 TSH 2.270 uIU/m L 0.450- 4.500 normal Not Available [facility] ([facility]) [address] [place], [address], 12/16/2024 20:37:23 12/13/19 25 12/14/2024 TSH+F REE T4 T4,free(dire ct) 0.96 NG/dL 0.82-1 .77 normal Not Available [facility] ([facility]) [address] [place], [address], 12/16/2024 20:37:23 12/13/19 25 12/14/2024 CBC WITH DIFFE RENTI AL/PL ATELE T WBC 8.4 x10e3 /uL 3.4-10 .8 normal Not Available [facility] ([facility]) [address] [place], [address], 12/16/2024 20:37:24 12/13/19 25 12/14/2024 CBC WITH DIFFE RENTI AL/PL ATELE T RBC 5.03 x10e6 /uL 3.77-5 .28 normal Not Available [facility] ([facility]) [address] [place], [address], 12/16/2024 20:37:24 12/13/19 25 12/14/2024 CBC WITH DIFFE RENTI AL/PL ATELE T hemoglobin 14.1 g/dL 11.1-1 5.9 normal Not Available [facility] ([facility]) [address] [place], [address], 12/16/2024 20:37:24 12/13/19 25 12/14/2024 CBC WITH DIFFE RENTI AL/PL ATELE T hematocrit 44.9 % 34.0-4 6.6 normal Not Available [facility] ([facility]) [address] [place], [address], 12/16/2024 20:37:24 12/13/19 25 12/14/2024 CBC WITH DIFFE RENTI AL/PL ATELE T MCV 89 fL 79-97 normal Not Available [facility] ([facility]) [address] [place], [address], 12/16/2024 20:37:24 12/13/19 25 12/14/2024 CBC WITH DIFFE RENTI AL/PL ATELE T MCH 28.0 pg 26.6-3 3.0 normal Not Available [facility] ([facility]) [address] [place], [address], 12/16/2024 20:37:24 12/13/19 25 12/14/2024 CBC WITH DIFFE RENTI AL/PL ATELE T MCHC 31.4 g/dL 31.5-3 5.7 below low normal Not Available [facility] ([facility]) [address] [place], [address], 12/16/2024 20:37:24 12/13/19 25 12/14/2024 CBC WITH DIFFE RENTI AL/PL ATELE T RDW 13.0 % 11.7-1 5.4 Not Available [facility] ([facility]) [address] [facility], [place], [address], 12/16/2024 20:37:24 12/13/19 25 12/14/2024 CBC WITH DIFFE RENTI AL/PL ATELE T platelets 463 x10e3 /uL 150-45 0 above high normal Not Available [facility] ([facility]) [address] [place], [address], 12/16/2024 20:37:24 12/13/19 25 12/14/2024 CBC WITH DIFFE RENTI AL/PL ATELE T neutrophils 53 % not estab. normal Not Available [facility] ([facility]) [address] [place], [address], 12/16/2024 20:37:24 12/13/19 25 12/14/2024 CBC WITH DIFFE RENTI AL/PL ATELE T lymphs 38 % not estab. normal Not Available [facility] ([facility]) [address] [place], [address], 12/16/2024 20:37:24 12/13/19 25 12/14/2024 CBC WITH DIFFE RENTI AL/PL ATELE T monocytes 6 % not estab. normal Not Available [facility] ([facility]) [address] [place], [address], 12/16/2024 20:37:24 12/13/19 25 12/14/2024 CBC WITH DIFFE RENTI AL/PL ATELE T eos 2 % not estab. normal Not Available [facility] ([facility]) [address] [facility], [place], [address], 12/16/2024 20:37:24 12/13/19 25 12/14/2024 CBC WITH DIFFE RENTI AL/PL ATELE T basos 1 % not estab. normal Not Available [facility] ([facility]) [address] [facility], [place], [address], 12/16/2024 20:37:24 12/13/19 25 12/14/2024 CBC WITH DIFFE RENTI AL/PL ATELE T immature cells J[employer]ISHER Not Available [facility] ([facility]) [address] [facility], [place], [address], 12/16/2024 20:37:24 12/13/19 25 12/14/2024 CBC WITH DIFFE RENTI AL/PL ATELE T neutrophils (absolute) 4.5 x10e3 /uL 1.4-7. 0 normal Not Available [facility] ([facility]) [address] [place], [address], 12/16/2024 20:37:24 12/13/19 25 12/14/2024 CBC WITH DIFFE RENTI AL/PL ATELE T lymphs (absolute) 3.2 x10e3 /uL 0.7-3. 1 above high normal Not Available [facility] ([facility]) [address] [place], [address], 12/16/2024 20:37:24 12/13/19 25 12/14/2024 CBC WITH DIFFE RENTI AL/PL ATELE T monocytes(ab solute) 0.5 x10e3 /uL 0.1-0. 9 normal Not Available [facility] ([facility]) [address] [place], [address], 12/16/2024 20:37:24 12/13/19 25 12/14/2024 CBC WITH DIFFE RENTI AL/PL ATELE T eos (absolute) 0.1 x10e3 /uL 0.0-0. 4 normal Not Available [facility] ([facility]) [address] [facility], [place], [address], 12/16/2024 20:37:24 12/13/19 25 12/14/2024 CBC WITH DIFFE RENTI AL/PL ATELE T baso (absolute) 0.1 x10e3 /uL 0.0-0. 2 normal Not Available [facility] ([facility]) [address] [facility], [place], [address], 12/16/2024 20:37:24 12/13/19 25 12/14/2024 CBC WITH DIFFE RENTI AL/PL ATELE T immature granulocytes 0 % not estab. Not Available [facility] ([facility]) [address] [facility], [place], [address], 12/16/2024 20:37:24 12/13/19 25 12/14/2024 CBC WITH DIFFE RENTI AL/PL ATELE T immature grans (abs) 0.0 x10e3 /uL 0.0-0. 1 Not Available [facility] ([facility]) [address] [place], [address], 12/16/2024 20:37:24 12/13/19 25 12/14/2024 CBC WITH DIFFE RENTI AL/PL ATELE T NRBC J[employer] Not Available [facility] ([facility]) [address] [place], [address], 12/16/2024 20:37:24 12/13/19 25 12/14/2024 CBC WITH DIFFE RENTI AL/PL ATELE T hematology comments: JET [employer]ISHER Not Available [facility] ([facility]) [address] [place], [address], 12/16/2024 20:37:24 12/13/19 25 12/14/2024 COMP. METAB OLIC PANEL (14) glucose 97 mg/dL 70-99 normal Not Available [facility] ([facility]) [address] [facility] [place], [address], 12/16/2024 20:37:25 12/13/19 25 12/14/2024 COMP. METAB OLIC PANEL (14) BUN 13 mg/dL 6-24 normal Not Available [facility] ([facility]) [address] [facility] [place], [address], 12/16/2024 20:37:25 12/13/19 25 12/14/2024 COMP. METAB OLIC PANEL (14) creatinine 0.95 mg/dL 0.57-1 .00 normal Not Available [facility] ([facility]) [address] [facility] [place], [address], 12/16/2024 20:37:25 12/13/19 25 12/14/2024 COMP. METAB OLIC PANEL (14) eGFR 72 mL/mi n/1.7 3 >59 normal Not Available [facility] ([facility]) [address] [facility], [place], [address], 12/16/2024 20:37:25 12/13/19 25 12/14/2024 COMP. METAB OLIC PANEL (14) BUN/creatini ne ratio 14 9-23 normal Not Available [facility] ([facility]) [address] [facility] [place], [address], 12/16/2024 20:37:25 12/13/19 25 12/14/2024 COMP. METAB OLIC PANEL (14) sodium 140 mmol/ L 134-14 4 normal Not Available [facility] ([facility]) [address] [facility] [place], [address], 12/16/2024 20:37:25 12/13/19 25 12/14/2024 COMP. METAB OLIC PANEL (14) potassium 4.1 mmol/ L 3.5-5. 2 normal Not Available [facility] ([facility]) [address] [facility] [place], [address], 12/16/2024 20:37:25 12/13/19 25 12/14/2024 COMP. METAB OLIC PANEL (14) chloride 105 mmol/ L 96-106 normal Not Available [facility] ([facility]) [address] [facility] [place], [address], 12/16/2024 20:37:25 12/13/19 25 12/14/2024 COMP. METAB OLIC PANEL (14) carbon dioxide, total 19 mmol/ L 20-29 below low normal Not Available [facility] ([facility]) [address] [facility] [place], [address], 12/16/2024 20:37:25 12/13/19 25 12/14/2024 COMP. METAB OLIC PANEL (14) calcium 9.7 mg/dL 8.7-10 .2 normal Not Available [facility] ([facility]) [address] [facility] [place], [address], 12/16/2024 20:37:25 12/13/19 25 12/14/2024 COMP. METAB OLIC PANEL (14) protein, total 7.2 g/dL 6.0-8. 5 normal Not Available [facility] ([facility]) [address] [place], [address], 12/16/2024 20:37:25 12/13/19 25 12/14/2024 COMP. METAB OLIC PANEL (14) albumin 4.3 g/dL 3.8-4. 9 normal Not Available [facility] ([facility]) [address] [place], [address], 12/16/2024 20:37:25 12/13/19 25 12/14/2024 COMP. METAB OLIC PANEL (14) globulin, total 2.9 g/dL 1.5-4. 5 Not Available [facility] ([facility]) [address] [place], [address], 12/16/2024 20:37:25 12/13/19 25 12/14/2024 COMP. METAB OLIC PANEL (14) bilirubin, total 0.4 mg/dL 0.0-1. 2 normal Not Available [facility] ([facility]) [address] [place], [address], 12/16/2024 20:37:25 12/13/19 25 12/14/2024 COMP. METAB OLIC PANEL (14) alkaline phosphatase 124 IU/L 44-121 above high normal Not Available [facility] ([facility]) [address] [place], [address], 12/16/2024 20:37:25 12/13/19 25 12/14/2024 COMP. METAB OLIC PANEL (14) AST (SGOT) 15 IU/L 0-40 normal Not Available [facility] ([facility]) [address] [place], [address], 12/16/2024 20:37:25 12/13/19 25 12/14/2024 COMP. METAB OLIC PANEL (14) ALT (SGPT) 14 IU/L 0-32 normal Not Available [facility] ([facility]) [address] [place], [address], 12/16/2024 20:37:25 12/13/19 25 12/14/2024 LIPID PANEL cholesterol, total 199 mg/dL 100-19 9 normal Not Available [facility] ([facility]) [address] [place], [address], 12/16/2024 20:37:26 12/13/19 25 12/14/2024 LIPID PANEL triglyceride s 130 mg/dL 0-149 normal Not Available [facility] ([facility]) [address] [place], [address], 12/16/2024 20:37:26 12/13/19 25 12/14/2024 LIPID PANEL HDL cholesterol 47 mg/dL >39 normal Not Available [facility] ([facility]) [address] [place], [address], 12/16/2024 20:37:26 12/13/19 25 12/14/2024 LIPID PANEL VLDL cholesterol fr[place] 23 mg/dL 5-40 Not Available [facility] ([facility]) [address] [place], [address], 12/16/2024 20:37:26 12/13/19 25 12/14/2024 LIPID PANEL LDL chol calc ([facility]) 129 mg/dL 0-99 above high normal Not Available [facility] ([facility]) [address] [place], [address], 12/16/2024 20:37:26 12/13/19 25 12/14/2024 LIPID PANEL LDL calc comment: [employer] Not Available [facility] ([facility]) [address] [place], [address], 12/16/2024 20:37:26 12/13/19 25 12/16/2024 VITAM IN E vitamin E(alpha tocopherol) 10.7 mg/L 7.0-25 .1 Not Available [facility] ([facility]) [address] [place], [address], 12/16/2024 20:37:27 12/13/19 25 12/16/2024 VITAM IN E vitamin E(gamma tocopherol) 2.6 mg/L 0.5-5. 5 Refer ence inter vals for alpha and gamma -toco phero l deter mined from [facility] and Nutri tion Exami natio n Surve y, 2004- 2005. Indiv idual s with alpha -toco phero l level s less than 5.0 mg/L are consi dered vitam in E defic ient. Not Available [facility] ([facility]) [address] [place], [address], 12/16/2024 20:37:27 12/13/1912/14/2024 HEMOG LOBIN A1C hemoglobin A1C 5.9 % 4.8-5. 6 above high normal Predi abete s: 5.7 - 6.4 Diabe vinay: >6.4 Glyce ren contr ol for adult s with diabe vinay: <7.0 Not Available [facility] ([facility]) [address] [facility] [address], [place], [address], 12/16/2024 20:37:29 12/13/19 25 12/14/2024 FOLAT E (FOLI C ACID) , SERUM folate (folic acid), serum 2.0 NG/mL >3.0 below low normal A serum folat e norberto ntrat ion of less than 3.1 ng/mL is consi dered to repre sent clini france defic iency . Not Available [facility] ([facility]) [address] [facility] [address], [place], [address], 12/16/2024 20:37:30 12/13/19 25 12/16/2024 VITAM IN A, SERUM vitamin A 38.8 ug/dL 20.1-6 2.0 Refer ence inter vals for vitam in A deter mined from [facility] inter nal studi es. Indiv idual s with vitam in A less than 20 ug/dL are consi dered vitam in A defic ient and those with serum norberto ntrat ions less than 10 ug/dL are consi dered sever rosa defic ient. This test was devel oped and its perfo rmanc e vivian cteri stics deter mined by [facility]. It has not been clear ed or appro jan by the Food and Drug Admin istra tion. Not Available [facility] ([facility]) [address] [facility] [address], [place], [address], 12/16/2024 20:37:31 12/13/19 25 12/14/2024 VITAM IN D, 25-HY DROXY vitamin D, 25-hydroxy 18.6 NG/mL 30.0-1 00.0 below low normal Vitam in D defic iency has been defin ed by the Insti tute of Medic ine and an Endoc rine Socie ty pract ice guide line as a level of serum 25-OH vitam in D less than 20 ng/mL (1,2) . The Endoc rine Socie ty went on to furth er defin e vitam in D insuf ficie ncy as a level betwe en 21 and 29 ng/mL (2). 1. IOM (Inst itute of Medic ine). 2009. Dieta ry refer ence intak es for calci um and D. Monica lewis DC: The [facility] . 2. Zoey fields MF, Emmanuel smith NC, Maddie off-F errar i ALEX, et al. Evalu ation , treat ment, and preve ntion of vitam in D defic iency : an Endoc rine Socie ty clini france pract ice guide line. JCEM. 2010; 96(7) :1911 -30. Not Available [facility] ([facility]) [address] [place], [address], 12/16/2024 20:37:32 12/13/19 25 12/16/2024 VITAM IN B1 (THIA MINE) , BLOOD vit. B1, whole blood 118.2 nmol/ L 66.5-2 00.0 Not Available [facility] ([facility]) [address] [place], [address], 12/16/2024 20:37:33 12/13/19 25 12/16/2024 METHY LMALO MARY ACID, SERUM methylmaloni c acid, serum 304 nmol/ L 0-378 Not Available [facility] ([facility]) [address] [place], [address], 12/16/2024 20:37:34 12/13/19 25 12/14/2024 PREAL BUMIN prealbumin 21 mg/dL 10-36 Not Available [facility] ([facility]) [address] [place], [address], 12/16/2024 20:37:35 03/21/20 25 03/22/2025 FE+TI BC+FE R iron bind.cap.(TI BC) 338 ug/dL 250-45 0 normal Not Available [facility] ([facility]) [address] [place], [address], 03/25/2025 18:35:55 03/21/20 25 03/22/2025 FE+TI BC+FE R UIBC 258 ug/dL 131-42 5 normal Not Available [facility] ([facility]) [address] [place], [address], 03/25/2025 18:35:55 03/21/20 25 03/22/2025 FE+TI BC+FE R iron 80 ug/dL 27-159 normal Not Available [facility] ([facility]) [address] [place], [address], 03/25/2025 18:35:55 03/21/20 25 03/22/2025 FE+TI BC+FE R iron saturation 24 % 15-55 normal Not Available [facility] ([facility]) [address] [place], [address], 03/25/2025 18:35:55 03/21/20 25 03/22/2025 FE+TI BC+FE R ferritin 103 NG/mL 15-150 normal Not Available [facility] ([facility]) [address] [place], [address], 03/25/2025 18:35:55 03/21/20 25 03/22/2025 TSH+F REE T4 TSH 2.430 uIU/m L 0.450- 4.500 normal Not Available [facility] ([facility]) [address] [place], [address], 03/25/2025 18:35:55 03/21/20 25 03/22/2025 TSH+F REE T4 T4,free(dire ct) 0.90 NG/dL 0.82-1 .77 normal Not Available [facility] ([facility]) [address] [place], [address], 03/25/2025 18:35:55 03/21/20 25 03/22/2025 CBC WITH DIFFE RENTI AL/PL ATELE T WBC 7.3 x10e3 /uL 3.4-10 .8 normal Not Available [facility] ([facility]) [address] [place], [address], 03/25/2025 18:35:56 03/21/20 25 03/22/2025 CBC WITH DIFFE RENTI AL/PL ATELE T RBC 4.79 x10e6 /uL 3.77-5 .28 normal Not Available [facility] ([facility]) [address] [place], [address], 03/25/2025 18:35:56 03/21/20 25 03/22/2025 CBC WITH DIFFE RENTI AL/PL ATELE T hemoglobin 13.8 g/dL 11.1-1 5.9 normal Not Available [facility] ([facility]) [address] [place], [address], 03/25/2025 18:35:56 03/21/20 25 03/22/2025 CBC WITH DIFFE RENTI AL/PL ATELE T hematocrit 44.0 % 34.0-4 6.6 normal Not Available [facility] ([facility]) [address] [place], [address], 03/25/2025 18:35:56 03/21/20 25 03/22/2025 CBC WITH DIFFE RENTI AL/PL ATELE T MCV 92 fL 79-97 normal Not Available [facility] ([facility]) [address] [place], [address], 03/25/2025 18:35:56 03/21/20 25 03/22/2025 CBC WITH DIFFE RENTI AL/PL ATELE T MCH 28.8 pg 26.6-3 3.0 normal Not Available [facility] ([facility]) [address] [facility], [place], [address], 03/25/2025 18:35:56 03/21/20 25 03/22/2025 CBC WITH DIFFE RENTI AL/PL ATELE T MCHC 31.4 g/dL 31.5-3 5.7 below low normal Not Available [facility] ([facility]) [address] [facility], [place], [address], 03/25/2025 18:35:56 03/21/20 25 03/22/2025 CBC WITH DIFFE RENTI AL/PL ATELE T RDW 12.6 % 11.7-1 5.4 Not Available [facility] ([facility]) [address] [facility], [place], [address], 03/25/2025 18:35:56 03/21/20 25 03/22/2025 CBC WITH DIFFE RENTI AL/PL ATELE T platelets 365 x10e3 /uL 150-45 0 normal Not Available [facility] ([facility]) [address] [facility], [place], [address], 03/25/2025 18:35:56 03/21/20 25 03/22/2025 CBC WITH DIFFE RENTI AL/PL ATELE T neutrophils 58 % not estab. normal Not Available [facility] ([facility]) [address] [facility], [place], [address], 03/25/2025 18:35:56 03/21/20 25 03/22/2025 CBC WITH DIFFE RENTI AL/PL ATELE T lymphs 34 % not estab. normal Not Available [facility] ([facility]) [address] [facility], [place], [address], 03/25/2025 18:35:56 03/21/20 25 03/22/2025 CBC WITH DIFFE RENTI AL/PL ATELE T monocytes 5 % not estab. normal Not Available [facility] ([facility]) [address] [place], [address], 03/25/2025 18:35:56 03/21/20 25 03/22/2025 CBC WITH DIFFE RENTI AL/PL ATELE T eos 2 % not estab. normal Not Available [facility] ([facility]) [address] [place], [address], 03/25/2025 18:35:56 03/21/20 25 03/22/2025 CBC WITH DIFFE RENTI AL/PL ATELE T basos 1 % not estab. normal Not Available [facility] ([facility]) [address] [place], [address], 03/25/2025 18:35:56 03/21/20 25 03/22/2025 CBC WITH DIFFE RENTI AL/PL ATELE T immature cells JET BLADE POLISHER Not Available [facility] ([facility]) [address] [place], [address], 03/25/2025 18:35:56 03/21/20 25 03/22/2025 CBC WITH DIFFE RENTI AL/PL ATELE T neutrophils (absolute) 4.3 x10e3 /uL 1.4-7. 0 normal Not Available [facility] ([facility]) [address] [place], [address], 03/25/2025 18:35:56 03/21/20 25 03/22/2025 CBC WITH DIFFE RENTI AL/PL ATELE T lymphs (absolute) 2.5 x10e3 /uL 0.7-3. 1 normal Not Available [facility] ([facility]) [address] [place], [address], 03/25/2025 18:35:56 03/21/20 25 03/22/2025 CBC WITH DIFFE RENTI AL/PL ATELE T monocytes(ab solute) 0.4 x10e3 /uL 0.1-0. 9 normal Not Available [facility] ([facility]) [address] [facility], [place], [address], 03/25/2025 18:35:56 03/21/20 25 03/22/2025 CBC WITH DIFFE RENTI AL/PL ATELE T eos (absolute) 0.1 x10e3 /uL 0.0-0. 4 normal Not Available [facility] ([facility]) [address] [facility], [place], [address], 03/25/2025 18:35:56 03/21/20 25 03/22/2025 CBC WITH DIFFE RENTI AL/PL ATELE T baso (absolute) 0.1 x10e3 /uL 0.0-0. 2 normal Not Available [facility] ([facility]) [address] [facility], [place], [address], 03/25/2025 18:35:56 03/21/20 25 03/22/2025 CBC WITH DIFFE RENTI AL/PL ATELE T immature granulocytes 0 % not estab. Not Available [facility] ([facility]) [address] [facility], [place], [address], 03/25/2025 18:35:56 03/21/20 25 03/22/2025 CBC WITH DIFFE RENTI AL/PL ATELE T immature grans (abs) 0.0 x10e3 /uL 0.0-0. 1 Not Available [facility] ([facility]) [address] [place], [address], 03/25/2025 18:35:56 03/21/20 25 03/22/2025 CBC WITH DIFFE RENTI AL/PL ATELE T NRBC JET BLADE POLISHER Not Available [facility] ([facility]) [address] [facility], [place], [address], 03/25/2025 18:35:56 03/21/20 25 03/22/2025 CBC WITH DIFFE RENTI AL/PL ATELE T hematology comments: JET BLADE POLISHER Not Available [facility] ([facility]) [address] [facility] [place], [address], 03/25/2025 18:35:56 03/21/20 25 03/22/2025 COMP. METAB OLIC PANEL (14) creatinine 0.86 mg/dL 0.57-1 .00 normal Not Available [facility] ([facility]) [address] [facility] [place], [address], 03/25/2025 18:35:57 03/21/20 25 03/22/2025 COMP. METAB OLIC PANEL (14) eGFR 81 mL/mi n/1.7 3 >59 normal Not Available [facility] ([facility]) [address] [facility] [place], [address], 03/25/2025 18:35:57 03/21/20 25 03/23/2025 COMP. METAB OLIC PANEL (14) glucose 94 mg/dL 70-99 normal Not Available [facility] ([facility]) [address] [facility], [place], [address], 03/25/2025 18:35:57 03/21/20 25 03/23/2025 COMP. METAB OLIC PANEL (14) BUN 13 mg/dL 6-24 normal Not Available [facility] ([facility]) [address] [facility] [place], [address], 03/25/2025 18:35:57 03/21/20 25 03/23/2025 COMP. METAB OLIC PANEL (14) BUN/creatini ne ratio 15 9-23 normal Not Available [facility] ([facility]) [address] [facility] [place], [address], 03/25/2025 18:35:57 03/21/20 25 03/23/2025 COMP. METAB OLIC PANEL (14) sodium 142 mmol/ L 134-14 4 normal Not Available [facility] ([facility]) [address] [facility] [place], [address], 03/25/2025 18:35:57 03/21/20 25 03/23/2025 COMP. METAB OLIC PANEL (14) potassium 4.0 mmol/ L 3.5-5. 2 normal Not Available [facility] ([facility]) [address] [facility] [place], [address], 03/25/2025 18:35:57 03/21/20 25 03/23/2025 COMP. METAB OLIC PANEL (14) chloride 109 mmol/ L 96-106 above high normal Not Available [facility] ([facility]) [address] [facility] [place], [address], 03/25/2025 18:35:57 03/21/20 25 03/23/2025 COMP. METAB OLIC PANEL (14) carbon dioxide, total 17 mmol/ L 20-29 below low normal Not Available [facility] ([facility]) [address] [facility] [place], [address], 03/25/2025 18:35:57 03/21/20 25 03/23/2025 COMP. METAB OLIC PANEL (14) calcium 9.3 mg/dL 8.7-10 .2 normal Not Available [facility] ([facility]) [address] [facility] [place], [address], 03/25/2025 18:35:57 03/21/20 25 03/23/2025 COMP. METAB OLIC PANEL (14) protein, total 6.6 g/dL 6.0-8. 5 normal Not Available [facility] ([facility]) [address] [facility] [place], [address], 03/25/2025 18:35:57 03/21/20 25 03/23/2025 COMP. METAB OLIC PANEL (14) albumin 4.2 g/dL 3.8-4. 9 normal Not Available [facility] ([facility]) [address] [facility] [place], [address], 03/25/2025 18:35:57 03/21/20 25 03/23/2025 COMP. METAB OLIC PANEL (14) globulin, total 2.4 g/dL 1.5-4. 5 Not Available [facility] ([facility]) [address] [place], [address], 03/25/2025 18:35:57 03/21/20 25 03/23/2025 COMP. METAB OLIC PANEL (14) bilirubin, total 0.3 mg/dL 0.0-1. 2 normal Not Available [facility] ([facility]) [address] [place], [address], 03/25/2025 18:35:57 03/21/20 25 03/23/2025 COMP. METAB OLIC PANEL (14) alkaline phosphatase 105 IU/L 44-121 normal Not Available [facility] ([facility]) [address] [place], [address], 03/25/2025 18:35:57 03/21/20 25 03/23/2025 COMP. METAB OLIC PANEL (14) AST (SGOT) 16 IU/L 0-40 normal Not Available [facility] ([facility]) [address] [place], [address], 03/25/2025 18:35:57 03/21/20 25 03/23/2025 COMP. METAB OLIC PANEL (14) ALT (SGPT) 11 IU/L 0-32 normal Not Available [facility] ([facility]) [address] [place], [address], 03/25/2025 18:35:57 03/21/20 25 03/22/2025 LIPID PANEL cholesterol, total 185 mg/dL 100-19 9 normal Not Available [facility] ([facility]) [address] [place], [address], 03/25/2025 18:35:57 03/21/20 25 03/22/2025 LIPID PANEL triglyceride s 90 mg/dL 0-149 normal Not Available [facility] ([facility]) [address] [place], [address], 03/25/2025 18:35:57 03/21/20 25 03/22/2025 LIPID PANEL HDL cholesterol 53 mg/dL >39 normal Not Available [facility] ([facility]) [address] [place], [address], 03/25/2025 18:35:57 03/21/20 25 03/22/2025 LIPID PANEL VLDL cholesterol france 16 mg/dL 5-40 Not Available [facility] ([facility]) [address] [place], [address], 03/25/2025 18:35:57 03/21/20 25 03/22/2025 LIPID PANEL LDL chol calc ([facility]) 116 mg/dL 0-99 above high normal Not Available [facility] ([facility]) [address] [place], [address], 03/25/2025 18:35:57 03/21/20 25 03/22/2025 LIPID PANEL LDL calc comment: JET BLADE POLISHER Not Available [facility] ([facility]) [address] [place], [address], 03/25/2025 18:35:57 03/21/20 25 03/24/2025 VITAM IN E vitamin E(alpha tocopherol) 9.1 mg/L 7.0-25 .1 Not Available [facility] ([facility]) [address] [place], [address], 03/25/2025 18:35:58 03/21/20 25 03/24/2025 VITAM IN E vitamin E(gamma tocopherol) 3.5 mg/L 0.5-5. 5 Refer ence inter vals for alpha and gamma -toco phero l deter mined from Natio nal Healt h and Nutri tion Exami natio n Surve y, 2004- 2005. Indiv idual s with alpha -toco phero l level s less than 5.0 mg/L are consi dered vitam in E defic ient. Not Available [facility] ([facility]) [address] [facility], [place], [address], 03/25/2025 18:35:58 03/21/20 25 03/22/2025 HEMOG LOBIN A1C hemoglobin A1C 5.7 % 4.8-5. 6 above high normal Predi abete s: 5.7 - 6.4 Diabe vinay: >6.4 Glyce ren contr ol for adult s with diabe vinay: <7.0 Not Available [facility] ([facility]) [address] [facility], [place], [address], 03/25/2025 18:35:58 03/21/20 25 03/22/2025 FOLAT E (FOLI C ACID) , SERUM folate (folic acid), serum 6.1 NG/mL >3.0 normal A serum folat e norberto ntrat ion of less than 3.1 ng/mL is consi dered to repre sent clini france defic iency . Not Available [facility] ([facility]) [address] [facility], [place], [address], 03/25/2025 18:35:59 03/21/20 25 03/24/2025 VITAM IN A, SERUM vitamin A 34.9 ug/dL 20.1-6 2.0 Refer ence inter vals for vitam in A deter mined from [facility] inter nal studi es. Indiv idual s with vitam in A less than 20 ug/dL are consi dered vitam in A defic ient and those with serum norberto ntrat ions less than 10 ug/dL are consi dered sever rosa defic ient. This test was devel oped and its perfo rmanc e vivian cteri stics deter mined by [facility]. It has not been clear ed or appro jan by the Food and Drug Admin istra tion. Not Available [facility] ([facility]) [address] [facility], [place], [address], 03/25/2025 18:36:00 03/21/20 25 03/22/2025 VITAM IN D, 25-HY DROXY vitamin D, 25-hydroxy 22.3 NG/mL 30.0-1 00.0 below low normal Vitam in D defic iency has been defin ed by the Insti tute of Medic ine and an Endoc rine Socie ty pract ice guide line as a level of serum 25-OH vitam in D less than 20 ng/mL (1,2) . The Endoc rine Socie ty went on to furth er defin e vitam in D insuf ficie ncy as a level betwe en 21 and 29 ng/mL (2). 1. IOM (Inst itute of Medic ine). 2009. Julioa ry refer ence yasmeen es for calci um and D. Monica lewis DC: The [facility] . 2. Zoey fields MF, Emmanuel smith [place], Maddie off-F errar i ALEX, et al. Evalu ation , treat ment, and preve ntion of vitam in D defic iency : an Endoc rine Socie ty clini france pract ice guide line. JCEM. 2010; 96(7) :1911 -30. Not Available [facility] ([facility]) [address] [facility], [place], [address], 03/25/2025 18:36:00 Result Notes None recorded. Problems Name Problem SNOMED Code Status Onset Date Resolution Date Notes Provider Name and Address Organization Details Recorded Time Folic acid deficiency 541386078 Active 2024 Xavi Clements, YAS, MEDICAL TRANSCRIPTION, JET BLADE POLISHER-C [address], [place], [address] , [place] - [facility] - [place] 5 10:41:38 Vitamin D deficiency 29611939 Active 2024 Xavi Clements, YAS, MEDICAL TRANSCRIPTION, JET BLADE POLISHER-C [address], [place], [address] , [place] - [facility] - [place] 5 08:34:50 Hypertensive disorder 28034518 Active 2023 KHRIS BUSTOS, DEVYN [address], [place], [address] , [place] - [facility] - [place] 4 12:10:13 Type 2 diabetes mellitus 13086317 Active 2023 KHRIS BUSTOS, DEVYN [address], [place], [address] , [place] - [facility] - [place] 4 12:38:06 Obesity 658033564 Active 2023 KHRIS BUSTOS, DEVYN [address], [place], [address] , [place] - [facility] [place] 4 12:38:14 Hyperlipidemi a 99969813 Active 2023 KHRIS BUSTOS, DEVYN [address], [place], [address] , [place] - [facility] - [place] 4 12:39:19 Morbid obesity 796462795 Active 2023 Xavi Clements, DNP, MEDICAL TRANSCRIPTION, [employer]-C [address] , [place], [address] , [place] - [facility] - [place] 4 10:52:23 Problem Notes None recorded. Procedures Surgical History Date Name Laterality Status Provider Name and Address Organization Details Recorded Time 06/08/20 24 laparoscopic sleeve gastrectomy completed Michelle RODRIGUEZ - [facility] - [place] 06/15/2024 10:04:04 01/09/20 24 completed Merry Valdez [place] - [facility] - [place] 03/17/2024 13:20:02 10/03/20 22 Date of Last Pap Smear completed Merry RODRIGUEZ - [facility] - [place] 03/17/2024 13:20:02 11/03/19 19 Other completed Merry Valdez [place] - [facility] - [place] 03/17/2024 13:20:02 11/03/19 18 excision of ganglion cyst completed WILLIAM BUSTOS NP [address], [place], [address], [facility] & [place] 02/24/2024 13:03:27 11/03/19 Tmj reconstruction completed WILLIAM BUSTOS, JET BLADE POLISHER [address], [place], [address], [facility] & [place] 02/24/2024 13:03:09 11/03/19 Head or Neck Surgery completed Merry Valdez JENNIFER [facility] & [place] 03/17/2024 13:20:02 11/03/18 77 Tonsillectomy/Bruno oidectomy completed Merry Valdez [facility] & [place] 03/17/2024 13:20:02 extraction of wisdom tooth completed Karla Mccarthy [facility] & [place] 02/23/2024 13:23:44 Tonsillectomy completed Karla Mccarthy [facility] & [place] 02/23/2024 13:24:00 Imaging Results None recorded. Procedure Notes None recorded. Medical Equipment None Reported. Allergies Allergen ID Allergen Name Allergen Category Reaction Reaction Severity Criticality Documentation Date Start Date Code Code System Note Provider Name and Address Organization Details Recorded Time 092170 Substance with sulfonami de structure and antibacte rial mechanism of action (substanc e) medicatio n hives nausea severe moderate Not available 02/24/2024 39393 8003 SNOMED [place] [facility] [place] 4 11:13:01 569030 shellfish derived food,medi cation anaphylax is severe Not available 02/24/2024 14415 UNK France Manningconchita abreu, JENNIFER - NT [facility] & [place] 4 11:15:27 Medications Name Sig Start Date Stop [...] Vitals Date Recorded Body height Body temperature Heart rate Body mass index (BMI) Body weight Systolic blood pressure Diastolic blood pressure Provider Name and Address Organization Details Last Updated DateTime 5 165.1 cm 97.8 [degF] 102 /min 31.7 kg/m2 08875.2 7 g 117 mm[Hg] 55 mm[Hg] Michelle RODRIGUEZ - [facility] - [place] 5 10:36:41 Date Recorded Body height Body temperature Body mass index (BMI) Body weight Heart rate Systolic blood pressure Diastolic blood pressure Provider Name and Address Organization Details Last Updated DateTime 5 165.1 cm 98.3 [degF] 32.4 kg/m2 44961.5 1 g 74 /min 123 mm[Hg] 84 mm[Hg] Michelle RODRIGUEZ [facility] & [place] 5 08:29:09 Date Recorded Body height Body mass index (BMI) Body weight Body temperature Heart rate Systolic blood pressure Diastolic blood pressure Provider Name and Address Organization Details Last Updated DateTime 4 165.1 cm 36.5 kg/m2 45811.5 3 g 98.8 [degF] 86 /min 123 mm[Hg] 84 mm[Hg] Michelle RODRIGUEZ [facility] & [place] 4 13:12:06 Date Recorded Body height Body temperature Heart rate Body mass index (BMI) Body weight Systolic blood pressure Diastolic blood pressure Provider Name and Address Organization Details Last Updated DateTime 4 165.1 cm 97.5 [degF] 76 /min 49.6 kg/m2 462969. 17 g 129 mm[Hg] 83 mm[Hg] Michelle RODRIGUEZ [facility] & [place] 4 08:38:53 Social History Question Answer Notes LastModified by Organizat ion Details LastModified Time Tobacco Smoking Status Former Smoker DARREN COLEMAN MD [address] [place], [address], [facility] & [place] 05/26/2024 13:05:25 Do You Have An Advance Directive? No [email or web address] Information not available 03/17/2024 Are You Blind Or Do You Have Difficulty Seeing? No [email or web address] Information not available 03/17/2024 What Is Your Level Of Caffeine Consumption? Moderate [email or web address] Information not available 09/10/2024 When Did You Quit Smoking? 1-5yearssince cristobal arriaga Information not available 05/26/2024 What Was The Date Of Your Most Recent Tobacco Screening? 02/21/2024 [email or web address] Information not available 03/17/2024 Are You Passively Exposed To Smoke? Yes [email or web address] Information not available 03/17/2024 How Much Tobacco Do You Smoke? No [email or web address] Information not available 05/26/2024 How Many Years Have You Smoked Tobacco? 20 [email or web address] Information not available 03/17/2024 Sex: Unknown Functional Status Question Answer Note LastModified by Organizat ion Details LastModified Time Do you use any illicit or recreational drugs? No [email or web address] Information not available 02/23/2024 What is your level of alcohol consumption? Occasional [email or web address] Information not available 03/17/2024 Do you or have you ever used smokeless tobacco? Never used smokeless tobacco [email or web address] Information not available 03/17/2024 What is your exercise level? Occasional [email or web address] Information not available 03/17/2024 Mental Status Question Answer Note LastModified by Organization D etails LastModified Time Do you feel stressed (tense, restless, nervous, or anxious, or unable to sleep at night)? [id number] [email or web address] Information not available 03/17/2024 Family History Relationship [...] [email or web address] Not available 02/21/2024 13:56:52 Mother Asthma [id number] Not availabl e 03/21/2025 08:18:02 Father Hypertensive [...] 13:56:10 Paternal Grandfather Malignant neoplasm of lung [id number] Not available 03/03 08:18:02 Medical History Condition [...] SNOMED-CT Code Diagnosis ICD10 Code Diagnosis Note [id number] KHRIS BUSTOS, DEVYN [facility] [address] [facility] [address] [place] [address] 02/24/2024 11:00:08 02/24/2024 13:53:25 Obesity 167644050 E66.9 The patient will be scheduled for the following. Initial intake lab work, cardiac clearance, and EGD. All risks complicati ons and alternativ es of the upper endoscopy were discussed with the patient and agreed upon. These include but are not limited to, over sedation, bleeding, perforatio n. Patient will be educated by the surgical weight loss team regarding if any medical managed weight loss will be required and they will follow this according to their recommenda tions. patient will follow-up in office after all testing has been completed Type 2 josie betes mellitus 38344823 E11.9 Hypertensive disorder 38 235981 I10 Hyperlipidemia 26828408 E78.5 Pre-surger y evaluation 357486677 Z01.818 Disorder o f function of stomach 616299661 K31.[id number], LD [facility] [address] [facility] [address] [place] [address] 02/24/2024 13:53:41 02/24/2024 14:55:02 Morbid obesity 318684345 E66.01 BMI 37.6 [id number] Tarik Frank MD [facility] [address] [facility] [address] [place] [address] 03/17/2024 13:11:30 03/17/2024 13:56:54 Hyperlipidemia 12793552 E78.5 Low fat/carboh ydrate dietIncrea se exerciseLo se weight Hypertensive disorder 38 014734 I10 Continue current medication . Keep log Low-salt diet < 2 gm Na/day, Regular exercise Weight loss Obesity 613267706 E66.9 Now considerin g surgery.Lo w-carbohyd rate and low-fat dietIncrea se exercise to 30 minutes a day.Increa se fruits and fresh vegetable intake and decrease processed foods and sugars Type 2 josie betes mellitus 53330285 E11.9 diet/wt loss -on ozempic Tobacco user 423806052 Z 72.0 The patient was educated, counseled about and encouraged on tobacco cessationf or 3-5 minutes. Preoperati ve cardiovascular examination 152597067 Z01.810 Good functional capacity with no prior cardiac history. Patient is low risk for cardiovasc ular complicati ons. ECG completed today in office and personally reviewed and interprete d: No further cardiac testing warranted at this point. No need to return to clinic unless cardiac concerns presents or patient wishes to [id number] DARREN COLEMAN MD [facility] [address] [place] [address] [address] [place] [address] 05/26/2024 09:55:26 05/26/2024 15:00:17 Morbid obesity 681737338 E66.01 Pre-surger y evaluation 485744560 Z01.818 Postoperative pain 38790 9007 G89.18 Type 2 josie betes mellitus 49123027 E11.9 Hypertensive disorder 38 106805 I10 Hyperlipidemia 03746670 E78.5 [id number] Xavi Clements, DNP, MEDICAL TRANSCRIPTION, [employer] [facility] [address] [place] [address] [address] [place] [address] 06/15/2024 07:46:47 06/15/2024 10:38:23 History of bariatric surgical procedure 838561867 Z98.84 The patient is doing well. The [...] choose to have them drawn at another [facility] they are to make sure that [...] understand this plan and agree to comply. Hyperlipidemia 09575093 E78.5 Hypertensive disorder 38 791042 I10 Type 2 josie betes mellitus 51761952 E11.9 Morbid obesity 068240968 E66.01 [id number] Xavi Clements, DNP, MEDICAL TRANSCRIPTION, [employer] [facility] [address] [facility] [address] [place] [address] 07/09/2024 12:53:31 07/09/2024 15:15:44 History of bariatric surgical procedure 303812151 Z98.84 The patient is doing well. The [...] choose to have them drawn at another [facility] they are to make sure that [...] understand this plan and agree to comply. Roshni turner weight loss 040540908 R63.8 History of gastrectomy 466209890 Z90.3 Advised qid intake 50% protein 3036-1440 calories/d y less than 100 carbs/dyPa tient will see dietitian todayFollo w-up with Repeat CIRA in 2 mth suggested Patient is status post bariatric surgery and at increased risk for vitamin deficienci es and malnutriti on. Bariatric vitamin panel ordered today. Patient will be contacted to correct any vitamin deficienci es. At [facility] risk of nutritional deficit 805369890 Z91.89 Hyperlipidemia 23012791 E78.5 Hypertensive disorder 38 545732 I10 Type 2 josie betes mellitus 16443115 E11.[id number], [facility] [address] [facility] [address] [place] [address] 07/09/2024 13:31:31 07/09/2024 14:16:00 Morbid obesity 178264521 E66.01 BMI 36.5 wt loss - 27.6# [id number] Xavi Clements, DNP, MEDICAL TRANSCRIPTION, [employer] [facility] [address] [facility] [address] [place] [address] 09/10/2024 08:33:19 09/10/2024 10:04:31 History of bariatric surgical procedure 166144505 Z98.84 The patient is doing well. The [...] choose to have them drawn at another [facility] they are to make sure that [...] agree to comply. Intentiona l weight loss 314124618 R63.8 History of gastrectomy 399026291 Z90.3 Advised qid intake 50% protein 8350-1783 calories/d y less than 100 carbs/dy Long [...] to correct any vitamin deficienci es. At [facility] risk of nutritional deficit 972272537 Z91.89 Hyperlipidemia 83898763 E78.5 Hypertensive disorder 38 939566 I10 Type 2 josie betes mellitus 19630073 E11.9 Morbid obesity 827024255 E66.01 [id number] Xavi Clements, DNP, MEDICAL TRANSCRIPTION, [employer] [facility] Adv S[facility] [address] [facility] [address] [place] [address] 12/13/2024 10:30:23 12/13/2024 10:54:06 History of bariatric surgical procedure 267678929 Z98.84 The patient is doing well. The [...] choose to have them drawn at another [facility] they are to make sure that [...] agree to comply. Intentiona l weight loss 553539303 R63.8 History of gastrectomy 769790538 Z90.3 Advised qid intake 50% protein 5552-0764 calories/d y less than 100 carbs/dy Long [...] to correct any vitamin deficienci es. At [facility] risk of nutritional deficit 062110707 Z91.89 Hyperlipidemia 14156709 E78.5 Hypertensive disorder 38 008515 I10 Type 2 josie betes mellitus 39738280 E11.9 Folic acid deficiency 19 6647379 E53.8 Morbid obesity 316837121 E66.[id number], LD [facility] [place] [facility] [address] [place] [address] 12/13/2024 10:21:48 12/13/2024 11:57:07 Morbid obesity 907092677 E66.01 BMI 31.7 wt loss - 56.9# [id number] Xavi Clements, DNP, MEDICAL TRANSCRIPTION, [employer] [facility] [address] [place] [address] 03/21/2025 08:16:52 03/21/2025 09:24:23 History of bariatric surgical procedure 172757450 Z98.84 The patient is doing well. The [...] choose to have them drawn at another [facility] they are to make sure that [...] agree to comply. Intentiona l weight loss 991047652 R63.8 History of gastrectomy 182547456 Z90.3 Advised qid intake 50% protein 3269-3994 calories/d y less than 100 carbs/dy Long [...] to correct any vitamin deficienci es. At [facility] risk of nutritional deficit 137583015 Z91.89 Folic acid deficiency 19 8477392 E53.8 Hyperlipidemia 11422444 E78.5 Hypertensive disorder 38 668599 I10 Type 2 josie betes mellitus 80338996 E11.9 Vitamin D deficiency 347 82245 E55.9 Obesity 813369157 E66.9 Health Concerns Section Related Observation LastModified by Organization Detai ls LastModified Time None Recorded Concern Status LastModified by Organization Details LastModified Time None Recorded Advance Directives Directive N: Payers Insurance Date Sequence Insurance Name Policy Number Policy Rosales Covered Member ID Rosales Member ID Guarantor Name 03/19/2025 1 [place] [id number] 1 Timothy Peace [id number] Timothy Peace Notes Date Note Type Note Provider Name and Address Organization Details Recorded Time 4 text/html Patient presents the office today for routine 1 month follow-up status post bariatric gastric sleeve gastrectomyRobotic assisted performed on 2023. Patient doing well. Reports q.i.d. small meal intake. Reports 60-70g/dy protein intake and good hydration.Patient is drinking 55 ounces of water a day.Daily Calories 500Taking routine vitamins as advised.Heartburn/gastr oesophageal reflux: deniesPt Denies : abdominal pain, prandial issues Nausea, Vomiting, bowel or bladder issuesTotal Weight loss Since last office visit has been 8.2 lbsPt is happy with their quality of life after Weight loss Surgery. Patient did see her primary care provider proximally 2 weeks ago. She wanted her to remain on her blood pressure medication. She has been unable to tolerate Premier protein shakes. She also did not tolerate muscle milk. She is doing okay with Oikos smoothies. She is also tolerating chicken as well as eggs. She is tolerating sausage and cheese. Xavi Clements, YAS, MEDICAL TRANSCRIPTION, [employer] [address] [facility], [place], [address], [facility] 07/09/2024 13:42:30 4 text/html ADIME TemplateA: RDN met w/Timothy Peace for 1 month f/up via office visit s/p Sleeve. Pt weight at MD Consult: 247.1#Current Weight: 219.5#Total Weight Change: -27.6#Notes on weight: Signs/SymptomsN/V/C/D: occ constipation Pertinent Labs/Meds/Vitamin regimen: taking vitamins as recommended Physical activity: stationary bike Tracking food/beverages consumed: Est. daily kcal intake: approx 500 kcal Est. daily protein intake: 60-70 gm pro Est. daily fluid intake: 50 oz Meal Pattern: eating 6-7 times a day Additional notes/concerns: Patient struggled with protein shakes initially, but has found sources to help meet needs. Recommended tracking kcal I: JEY Recommendations/Goals:1 . Track kcal intake2. Recommend increasing kcal to 800-19897. Continue with physical activity4. Work toward increasing fluids to 64 oz/day, set timer Pt verbally agreed to recommendations and goals. Denied further questions/concerns. M/E: RD will monitor weight loss, labs, and lifestyle modifications. Will f/up as scheduled or PRN. . [address] [address] [address] [address], [place], [address], [facility] 07/09/2024 14:15:41 4 text/html Patient presents the office today for routine 3 month follow-up status post bariatric gastric sleeve gastrectomyRobotic assisted performed on 2023. Patient doing well. Reports q.i.d. small meal intake. Reports 60-70g/dy protein intake and good hydration.Patient is drinking 48-50 ounces of water a day.Daily Calories 1000Taking routine vitamins as advised.Heartburn/gastr oesophageal reflux deniesPt Denies : abdominal pain, prandial issues Nausea, Vomiting, bowel or bladder issuesTotal Weight loss Since last office visit has been 39.2 lbsPt is happy with their quality of life after Weight loss Surgery.Has seen pcp. she has not smoked.Has been tolerating all foods. Today's InBody reveals a skeletal muscle mass = 61.5 lb,body fat mass = 96.3 lb,BMI = 34.6Percent body fat = 46.3Basal Metabolic Rate = 1463 kilo calories Xavi Clements DNP, MEDICAL TRANSCRIPTION, [employer] [address] , [place], [address], [facility] 09/10/2024 08:59:32 5 text/html Patient presents the office today for routine 6 month follow-up status post bariatric gastric sleeve gastrectomyRobotic assisted performed on 2023. Patient doing well. Reports q.i.d. small meal intake. Reports 60-70g/dy protein intake and good hydration.Patient is drinking 50 ounces of water a day.Daily Calories 1000Taking routine vitamins as advised. Hx of folic acid deficiencyHeartburn/gas troesophageal reflux: deniesPt Denies : abdominal pain, prandial issues Nausea, Vomiting, bowel or bladder issuesTotal Weight loss Since last office visit has been 17.7 lbsPt is happy with their quality of life after Weight loss Surgery. Today's InBody reveals a skeletal muscle mass = 59.5 lb,body fat mass = 82.4 lb,BMI = 31.6Percent body fat = 43.3Basal Metabolic Rate = 1426 kilo calories Xavi Clements DNP, MEDICAL TRANSCRIPTION, [employer]-C [address] , [place], [address], [facility] 12/13/2024 11:24:43 5 text/html ADIME TemplateA: JEY met w/Timothy Peace for 6 mo f/up via office visit s/p Sleeve. Pt weight at MD Consult: 247.1#Current Weight: 190.2#Total Weight Change: -56.9#Notes on weight: Signs/SymptomsN/V/C/D: none Pertinent Labs/Meds/Vitamin regimen: taking vitamins as recommended Physical activity: walking Tracking food/beverages consumed: Est. daily kcal intake: 9891-1606 Est. daily protein intake: 60-70 gm Est. daily fluid intake: 64 oz Meal Pattern: Patient eating 4 times a day Additional notes/concerns: Patient not meeting kcal and protein goals consistently. Recommended eating 6 times a day and working toward 70-100 gm protein and 1200kcal/day I: RDN Recommendations/Goals:1 . Eat 6 times a day2. Work toward 1200 kcal, and 70-100 gm protien3. Increase carbs and healthy fats to meet kcal goals4. Try smoothies5. Continue with physical activity Pt verbally agreed to recommendations and goals. Denied further questions/concerns. M/E: RDN will monitor weight loss, labs, and lifestyle modifications. Will f/up as scheduled or PRN. . [place] [address], [place] [address], [place], [address], [facility] [place] 12/13/2024 15:10:00 text/html Patient presents the office today for routine 9 month follow-up status post bariatric gastric sleeve gastrectomy Robotic assisted performed on 2023. Patient doing well. Reports q.i.d. small meal intake. Reports 60-70g/dy protein intake and good hydration.Patient is drinking 64 ounces of water a day.Daily Calories 1800Taking routine vitamins as advised. Hx of folic acid and Vit D deficiencyHeartburn/gas troesophageal reflux: deniesPt Denies : abdominal pain, prandial [...] = 1437 kilo calories Xavi Clements, DNP, MEDICAL TRANSCRIPTION, [employer] [address], [place], [address], [facility] [place] 03/21/2025 08:55:56 OBGyn Episode No OBEpisode recorded.
--- OUTSIDE RECORDS SUMMARY | 2025-04-08 13:52 | XMS_ITS | Encounter Summary ---
Author Organization [employer] Address [address] [place] [address] Care Team Providers Care Railroad Construction Director Name Role Phone Fritz Alvarez MD Primary Care Provider Reason for Referral * Mammography (Routine) - Closed Specialty Diagnoses / Procedures Referred By Contac t Referred To Contact Diagnoses Visit for screening mammogram Procedures MM digital mammo screen with nora bilateral MM digital mammo screen bilateral Fritz Alvarez MD [address] [place] [address] Phone: tel: fax: Referral ID Status Reason Start Date Expiration Date Visits Re quested Visits Authorized [id number] Closed 10/07/2022 04/05/2023 1 1 Encounter Details Date Type Department Care Team (Late st Contact Info) Description 10/07/[address] [facility] Central Scheduling [address] [place] [address] Fritz Alvarez MD [address] [place] [address] Visit for screening mammogram (Primary Dx) Social History Tobacco Use Types Packs/Day Years Used Date Smoking Tobacco: Never Assessed Comments Unknown Sex and Gender Information Value Date Recorded Sex Assigned at Not on file Legal Sex Female 5:29 PM CDT Gender Identity Not on file Sexual Orientation Not on file documented as of this encounter Plan of Treatment Upcoming Encounters Date Type Department Care Team (Late st Contact Info) Description 01/30/2026 9:00 AM EDT Appointment [facility] [address] [address] documented as of this encounter Results * MM digital mammo screen with nora bilateral (01/09/2024 2:40 PM EST) Anatomical Region Laterality Modality Breast Bilateral Mammography 01/09/2024 2:44 PM EST Impressions 01/09/2024 2:48 PM EST FINAL IMPRESSION: Stable mammogram. No findings suspicious for malignancy. Bi-RADS: ACR BI-RADS 2: Benign findings. RECOMMENDATIONS: Annual screening mammography. A letter including results and recommendations was sent to the patient. Density notification was included for patients with pattern 3 or 4 breast tissue. Patient information was entered into a reminder system with a target due date for the next mammogram. At our facility, a kluti kaah marker is positioned over a visible skin lesion and a linear marker is used to indicate a scar. A triangular marker is placed on a self reported palpable finding. Note: Mammography does not detect approximately 10-15% of breast cancers. An annual clinical breast exam by the patient's breast care physician and regular monthly self breast exams by the patient are integral parts of breast cancer screening, in addition to annual mammography. A normal mammogram does not completely exclude the presence of breast cancer, especially if there is an abnormal finding on physical exam. When clinically indicated, a biopsy should not be deferred because of a normal mammogram report. Narrative 01/09/2024 2:48 PM EST PROCEDURE: Digital screening mammogram with Digital Breast Tomosynthesis (DBT). REASON FOR EXAM: Routine screening. FAMILY HISTORY: Weak family history of breast cancer. COMPARISON STUDY: 2021 through 2019, 2017, 2016 from [facility] FINDINGS: Craniocaudal and mediolateral oblique images of both breasts were obtained in 2D and DBT modes. Synthesized views were reconstructed from DBT data. The breast tissue has pattern b (scattered fibroglandular densities). Asymmetries are stable. There is no evidence of dominant mass, architectural distortion, or suspicious calcifications. The mammogram was interpreted with the benefit of computer aided detection (CAD). us Fritz Alvarez MD IMG MAMMOGRAPHY ORDERABLES Carmen l Result documented in this encounter Visit Diagnoses Diagnosis Visit for screening mammogram- Primary Visit for screening mammogram documented in this encounter Care Teams Railroad Construction Director Relationship Specialty Start Date End Date Fritz Alvarez MD [address] [place], [place] [address] PCP - General Family Medicine 10/07/22 documented as of this encounter
== END 2025-04-08 23:59 | disposition home or self-care (01) ==
LOC: RAD 13:44
PROVIDERS: PCP Family Medicine; Visit Provider Nurse Practitioner Family
DX: R59.0 Localized enlarged lymph nodes (principal); E04.2 Nontoxic multinodular goiter
CPT/HCPCS: 76536

== ENCOUNTER 2025-04-18 08:43 | Outpatient (CLI) | payer BC, SELFPAY ==
--- NOTE | 2025-04-18 08:45 | US_ITS ---
FINAL REPORT TECHNIQUE: Sonographic images of the thyroid were obtained. CLINICAL HISTORY: LOCALIZED SWELLING MASS AND LUMP IN NECK COMPARISON: None FINDINGS: THYROID ULTRASOUND The right thyroid gland measures 5.5 x 2.7 x 1.8 cm. The left thyroid gland measures 5.6 x 2.1 x 1.8 cm. Multiple nodules are noted throughout both lobes of the thyroid. The largest nodule in the mid right lobe measures 2.0 x 1.8 cm, hypoechoic. There is increased through-transmission. In the left upper lobe, there is a 1.7 cm hypoechoic nodule. There are multiple other smaller nodules seen bilaterally. IMPRESSION: Dominant TI-RADS 4 nodules as above. Recommend needle sampling of the dominant right and left lobe nodules. Reviewed, Interpreted and Dictated by Robert Eisenberg MD Transcribed by Chacha Ram Authenticated and [facility]
--- OUTSIDE RECORDS SUMMARY | 2025-04-18 08:46 | XMS_ITS | Referral Summary ---
Author Organization [employer] Address [address] [place] [address] Care Team Providers Care Repairer General Name Role Phone Fritz Alvarez MD Primary Care Provider [phone] Encounters Date Type Department Care Team Description 01/24/2025 8:37 AM EDT - 01/24/2025 11:59 PM EDT Hospital Encounter [facility] Breast [address] [place] [address] Visit for screening mammogram (Primary Dx) [...] Date Sathish rded Speak language other than Georgian at home Not on file 11/13/2023 Want [...] Info) Description 01/30/2026 9:00 AM EDT Appointment [address] [place] [address] Procedures Procedure Name Priority Date/Time Associated [...] Months Insurance BLUE CROSS/BLUE SHIELD Care Teams Repairer General Relationship Specialty Start Date End Date Fritz Alvarez MD [address] [place] [address] PCP - General Family Medicine 10/07/22
--- OUTSIDE RECORDS SUMMARY | 2025-04-18 08:46 | XMS_ITS | Data Portability ---
Author Organization [facility] CARINA Lord [place] [facility] Address [address] [facility] [place] [address] Care Team Providers Care Crate Tier Name Role Phone FRITZ ALVAREZ Primary Care Provider [phone] Assessment No assessment recorded. Plan of Treatment [...] By Organization Details Last Modified Time 05/20/2022 [id number] Patient is instructed that it is ok [...] (PROC ) No observ ation record edFrederick riley Not Available 2021 12:56:58 Result Notes None recorded. Problems No Known Problems Procedures Surgical History Date Name Laterality Status Provider Name and Address Organization Details Recorded Time 04/23/20 22 Electromyography (EMG) with Nerve Conduction Study (NCV) completed Lexie Thrasher (Nicky) [facility] 04/23/2022 09:57:27 10/18/20 19 OT Therapeutic Exercise completed JANN JOSE, OTR/L, CHT [address] [place], [address], [facility] 10/18/2019 09:40:23 10/18/20 19 OT Manual Therapy completed JANN JOSE OTR/L, CHT [address] [place], [address], [facility] 10/18/2019 09:40:26 10/18/20 19 PT Hot/Cold Pack completed JANN JOSE OTR/L, CHT [address] [place], [address], [facility] 10/18/2019 08:42:45 09/28/20 19 OT Therapeutic Exercise completed JANN JOSE OTR/L, CHT [address] [place], [address], [facility] 09/28/2019 10:58:05 09/28/20 19 OT Manual Therapy completed JANN JOSE OTR/L, CHT [address] [place], [address], [facility] 09/28/2019 10:57:50 09/28/20 19 PT Hot/Cold Pack completed JANN JOSE OTR/L, CHT [address] [place], [address], [facility] 09/28/2019 10:04:39 09/20/20 19 OT Evaluation - Moderate complexity completed JANN JOSE OTR/L, CHT [address] [place], [address], [facility] 09/20/2019 10:27:09 09/15/20 19 Op Note completed CANDELARIO OSORIO MD [facility] [place], [address], [facility] 09/15/2019 13:27:08 Imaging Results None recorded. Procedure Notes None recorded. Medical Equipment None Reported. Allergies Allergen ID Allergen Name Allergen Category Reaction Reaction Severity Criticality Documentation Date Start Date Code Code System Note Provider Name and Address Organization Details Recorded Time 917067 Substance with sulfonami de structure and antibacte rial mechanism of action (substanc e) medicatio n Not available Not available Not available 09/14/2019 13288 8003 SNOMED Karla Canales [facility] 9 08:48:53 895426 shellfish derived food,medi cation Not available Not available Not available 09/14/2019 55591 UNK Karla Canales [facility] 9 08:48:57 Medications Name Sig Start [...] Updated DateTime 04/22/2022 165.1 cm 32.4 kg/m2 80219.51 g Lisa Baez [facility] 04/22/2022 10:33:19 Date Recorded Body height Body mass index (BMI) Body weight Provider Name and Address Organization Details Last Updated DateTime 05/20/2022 165.1 cm 32.4 kg/m2 57134.51 g Rusty Peñaloza [facility] 05/20/2022 09:48:03 Date Recorded Body height Body mass index (BMI) Body weight Provider Name and Address Organization Details Last Updated DateTime 06/19/2022 165.1 cm 32.4 kg/m2 01538.51 g Baltazar Chaidezphoebe [facility] 06/19/2022 18:01:05 Social History Question Answer Notes LastModified by [employer] Details LastModified Time Tobacco Smoking Status Current [...] Functional Status Question Answer Note LastModified by [employer] Details LastModified Time Do you use any illicit or recreational drugs? No Information not available 09/14/2019 What is your level of alcohol consumption? Occasional Information not available 09/14/2019 Are you currently employed? 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 Family History Relationship Description Onset Age of this Age Resolved Age Notes LastModified by Organization Details LastModified Time Father No current problems or disability Not available 09/14 08:49:29 Mother No current problems or disability Not available 09/14 08:49:29 Medical History Condition Response Diabetes N Bleeding Disorder N Heart Conditions N Blood Clot N Heart Attack ([place]) N Hypertension Y Pneumonia Y Gynecological HistoryNo gynecological history recorded. Obstetrics History GPAL:G 0 P 0 0 0 0 Past Encounters Encounter ID Performer Location Encounter Start Date Encounter Closed Date Diagnosis/Indication Diagnosis SNOMED-CT Code Diagnosis ICD10 Code Diagnosis Note [id number] CANDELARIO OSORIO MD [facility] [address] [place] [address] 09/14/2019 08:30:44 09/14/2019 10:31:46 Cubital tunnel syndrome 36449931 G56.22 EMG/NCV (08/11/19) was normal [id number] CANDELARIO OSORIO MD SURGERY SCHEDULE [address] [place] [address] 09/15/2019 12:38:01 09/15/2019 12:40:53 [id number] VIOLA AGUIRRE/L, CHT PHYSICAL THERAPY / HAND THERAPY [facility] [address] [place] [address] 09/20/2019 09:26:52 09/20/2019 11:19:38 Cubital tunnel syndrome 30941982 G56.22 [id number] AQUILES DEJESUS PA-C [facility]THOPEDI CS [facility] [address] [place] [address] 09/28/2019 09:17:18 09/28/2019 11:30:42 Cubital tunnel syndrome 93318237 G56.22 EMG/NCV (08/11/19) was normal, however, exam findings consistent with diagnosis of Cubital Tunnel Syndrome. Postoperative care 79755 9007 Z48.89 Doing well s/p Left cubital [...] interim with any additional questions or concerns. [id number] JANN K REBECA, OTR/L, CHT PHYSICAL THERAPY / HAND THERAPY [facility] [address] [place] [address] 09/28/2019 09:18:03 09/28/2019 16:06:33 Cubital tunnel syndrome 12859981 G56.22 [id number] JANN JOSE OTR/L, CHT PHYSICAL THERAPY / HAND THERAPY [facility] [address] [place] [address] 10/18/2019 08:39:51 10/18/2019 12:58:23 Cubital tunnel syndrome 36940705 G56.22 [id number] CANDELARIO OSORIO MD ORTHOPEDI CS [facility] [address] [place] [address] 11/04/2019 09:11:58 11/04/2019 11:27:24 Postoperative care 987114012 Z48.89 6 weeks s/p Left cubital tunnel release in-situ (DOS: 09/15/19) [id number] CLAIR DAMIAN MD [facility]OPEDI CS [facility] [address] [place] [address] 04/22/2022 10:24:44 04/22/2022 11:15:12 Carpal tunnel syndrome of right wrist 0962023213 31729 G56.01 Carpal tunnel release, EMG first Risks and benefits of the surgery were discussed including transient worsening of symptoms, possible failure to relieve symptoms, possible nerve injury, possible infection, possible stiffness, and no guarantees . I discussed soreness in the palm of the hand and swelling in the wrist which may last for several months after surgery. [id number] CORINNA ORTIZ MD [facility] [address] [place] [address] 04/23/2022 08:40:16 04/23/2022 10:22:00 Skin sensation disturbance 56043130 R20.9 [id number] CLAIR DAMIAN MD SURGERY SCHEDULE [address] [place] [address] 05/09/2022 07:25:58 05/09/2022 07:26:53 [id number] DRAGAN RASHID PA-C [facility]THOPEDI CS [facility] [address] [place] [facility] 05/20/2022 09:18:01 05/20/2022 09:51:43 Carpal tunnel syndrome of right wrist 3050209886 11270 G56.01 Doing well status post release of the right carpal tunnel. [id number] CLAIR DAMIAN MD [facility]OPEDI [facility] [address] [place] [address] 06/19/2022 17:56:48 06/20/2022 10:50:14 Carpal tunnel syndrome of right wrist 9087745833 47811 G56.01 Extremely satisfied, back to full use, follow-up as needed Health Concerns Section Related Observation LastModified by Organization Detai ls LastModified Time None Recorded Concern Status LastModified by Organization Details LastModified Time None Recorded Advance Directives Directive None Recorded Payers Insurance Date Sequence Insurance Name Policy Number Policy Rosales Covered Member ID Rosales Member ID Guarantor Name 06/16/2022 1 [place] [id number] 1 Timothy L Mynear [id number] Timothy L Mynear 04/20/2022 1 [place] [id number] Timothy Mynear [id number] Timothy L Mynear Notes Date Note [...] (if known): Dr Osorio Currently employed?: Full timeEmployer:[facility] of [place]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 Yes Is this injury associated with a Workers Compensation claim? No Patient arrived in: Machine Scallop Cutter Strength: right: left: New: Ms Peace arrives [...] finger x 30 days CLAIR DAMIAN MD [address] [place], [address], [facility] 04/22/2022 10:52:43 2 text/html The patient is here for a routine scheduled postoperative follow-up visit status post right carpal tunnel release. She reports improved symptoms. POST OP GLOBAL VISIT DATE OF SURGERY: 05-09-2022 TIME POST SURGERY:10-14 DAYS SURGERY:Right Carpal Tunnel Release INTERVAL HISTORY: PREOP SYMPTOMSBETTER PAIN LEVEL (VAS)0/10 OVERALL ASSESSMENTIMPROVING NEW SYMPTOMS OR QUESTIONS: Ms. Peace arrives for post op follow up, reports bruising on volar aspect thumb and wrist right side. DRAGAN RASHID PA-C [address] [place], [address], [facility] 05/20/2022 11:09:13 2 text/html POST OP GLOBAL VISIT DATE OF SURGERY: 05-09-2022 TIME POST SURGERY:6 WKS SURGERY:Right Carpal Tunnel Release INTERVAL HISTORY: PREOP SYMPTOMSBETTER PAIN LEVEL (VAS)0/10 OVERALL ASSESSMENTIMPROVING NEW SYMPTOMS OR QUESTIONS: Ms. Peace, right CTR, No reports of anything. CLAIR DAMIAN MD [address] [place], [address], [facility] 06/19/2022 18:09:23 OBGyn Episode No OBEpisode recorded.
--- OUTSIDE RECORDS SUMMARY | 2025-04-18 08:46 | XMS_ITS | Clinical Summary ---
Author Organization [employer] Address [address] [place] [address] Care Team Providers Care Hydraulic Tester Name Role Phone Fritz Alvarez MD Primary Care Provider [phone] Encounters Date Type Department Care Team Description 01/24/2025 8:37 AM EDT - 01/24/2025 11:59 PM EDT Hospital Encounter [address] [place] [address] Visit for screening mammogram (Primary Dx) [...] Date Sathish rded Speak language other than Jordanian at home Not on file 11/13/2023 Want [...] Info) Description 01/30/2026 9:00 AM EDT Appointment [address] [address] Health Maintenance Due Date Last [...] Months Insurance BLUE CROSS/BLUE SHIELD Care Teams Hydraulic Tester Relationship Specialty Start Date End Date Fritz Alvarez MD [address] [place] [address] PCP - General Family Medicine 10/07/22
--- OUTSIDE RECORDS SUMMARY | 2025-04-18 08:46 | XMS_ITS | Encounter Summary ---
Author Organization [employer] [facility] [employer] Address [address] [place] [address] Care Team Providers Care Child And Adolescent Therapist Name Role Phone Fritz Alvarez MD Primary Care Provider [phone] Reason for Referral * Mammography (Routine) - Closed Specialty Diagnoses / Procedures Referred By Contac t Referred To Contact Diagnoses Visit for screening mammogram Procedures MM digital mammo screen with nora bilateral MM digital mammo screen bilateral Fritz Alvarez MD [address] [place] [address] Phone: tel: fax: Referral ID Status Reason Start Date Expiration Date Visits Re quested Visits Authorized [id number] Closed 10/07/2022 04/05/2023 1 1 Encounter Details Date Type Department Care Team (Late st Contact Info) Description 10/07/2022 Outside Orders [facility] Central Scheduling [address] [place] [address] Fritz Alvarez MD [address] [place] [address] Visit for screening mammogram (Primary Dx) [...] Info) Description 01/30/2026 9:00 AM EDT Appointment [facility] [address] [address] documented as of this encounter [...] the next mammogram. At our facility, a tununak marker is positioned over a visible skin [...] STUDY: 2021 through 2019, 2017, 2016 from [facility] FINDINGS: Craniocaudal and mediolateral oblique images of [...] mammogram documented in this encounter Care Teams Child And Adolescent Therapist Relationship Specialty Start Date End Date Fritz Alvarez MD [address] [place], [place] [address] PCP - General Family Medicine 10/07/22 documented as of this encounter
--- OUTSIDE RECORDS SUMMARY | 2025-04-18 08:46 | XMS_ITS | Continuity of Care Document ---
Author Organization [place] - [facility] Address [address] [place] [address] Care Team Providers Care Publications Distribution Clerk Name Role Phone KAVYA PRIETO Primary Care Provider [phone] Assessment No assessment recorded. Plan of Treatment Reminders Order Date Submit Date Provider Last Modified By Organization Details Last Modified Time Details Appointments OV EST 20 2024 10:00A M Xavi Clements, DNP, MANAGER ADMINISTRATIVE, CAFE MANAGER-C Not available Not available Not available Lab HbA1c (hemoglo bin A1c), blood 2024 025 JAQUAN [facility], [address], [place], [address], 03/25/2025 18:35:58 iron + TIBC + ferritin , serum 2024 025 JAQUAN [facility], [address], [address], [place], [address], 03/25/2025 18:35:55 prealbum in, serum 2024 025 JAQUAN [facility], [address], [address], [place], [address], 03/25/2025 18:36:02 thiamine , QN, blood 2024 025 JAQUAN [facility], [address], [address], [place], [address], 03/25/2025 18:36:01 methylma lonate, QN, serum or plasma 2024 025 JAQUAN [facility], [address], [address], [place], [address], 03/25/2025 18:36:01 vitamin D, 25-hydro xy, total, serum 2024 025 JAQUAN [facility], [address], [address], [place], [address], 03/25/2025 18:36:00 vitamin E, serum 2024 025 JAQUAN [facility], [address], [address], [place], [address], 03/25/2025 18:35:58 vitamin A (retinol ), serum 2024 025 JAQUAN [facility], [address], [address], [place], [address], 03/25/2025 18:36:00 folate, serum 2024 025 JAQUAN [facility], [address], [address], [place], [address], 03/25/2025 18:35:59 CBC w/ auto diff 2024 025 JAQUAN [facility], [address], [address], [place], [address], 03/25/2025 18:35:56 CMP, serum or plasma 2024 025 JAQUAN [facility], [address], [address], [place], [address], 03/25/2025 18:35:57 TSH + free T4, serum 2024 025 JAQUAN [facility], [address], [address], [place], [address], 03/25/2025 18:35:55 lipid panel, serum 2024 025 JAQUAN [facility], [address], [place], [address], 03/25/2025 18:35:57 Referral None recorded . Procedures None recorded . Surgeries None recorded . Imaging None recorded . Medication Orders None recorded . Patient TargetsNo targets recorded. Patient InstructionsNo instructions recorded. Reason for Referral None Reported. Problems Name Problem SNOMED Code Status Onset Date Resolution Date Notes Provider Name and Address Organization Details Recorded Time Folic acid deficiency 394499895 Active 2024 Xavi Clements, YAS, MANAGER ADMINISTRATIVE, CAFE MANAGER-C [address] [facility], [place], [address] , [place] - [facility] [place] 5 10:41:38 Vitamin D deficiency 70775185 Active 2024 Xavi Clements, YAS, MANAGER ADMINISTRATIVE, CAFE MANAGER-C [address] [facility], [place], [address] , [place] - [facility] [place] 5 08:34:50 Hypertensive disorder 33098322 Active 2023 KHRIS BUSTOS, CAFE MANAGER [address] [facility], [place], [address] , [place] - [facility] - [place] & [place] 4 12:10:13 Type 2 diabetes mellitus 52293534 Active 2023 KHRIS BUSTOS NP [address], [place], [address] , [place] - [facility] [place] 4 12:38:06 Obesity 894642399 Active 2023 KHRIS BUSTOS CAFE MANAGER [address] [facility], [place], [address] , [place] - [facility] - [place] 4 12:38:14 Hyperlipidemi a 65030460 Active 2023 KHRIS BUSTOS NP [address], [place], [address] , [place] - [facility] [place] 4 12:39:19 Morbid obesity 587572570 Active 2023 Xavi Clements, DNP, MANAGER ADMINISTRATIVE, CAFE MANAGER-C [address], [place], [address] , [place] - [facility] & [place] 10:52:23 Problem Notes None recorded. Procedures Surgical History Date Name Laterality Status Provider Name and Address Organization Details Recorded Time 06/08/20 24 laparoscopic sleeve gastrectomy completed Michelle Tony [place] - [facility] & [place] 06/15/2024 10:04:04 01/09/20 24 completed Merry RODRIGUEZ - [facility] & [place] 03/17/2024 13:20:02 10/03/20 22 Date of Last Pap Smear completed Merry RODRIGUEZ - [facility] & [place] 03/17/2024 13:20:02 11/03/19 19 Other completed Merry RODRIGUEZ - [facility] & [place] 03/17/2024 13:20:02 11/03/19 18 excision of ganglion cyst completed WILLIAM BUSTOS NP [address], [place], [address], [facility] - [facility] & [place] 02/24/2024 13:03:27 11/03/19 01 Tmj reconstruction completed WILLIAM BUSTOS NP [address], [place], [address], [place] - [facility] & [place] 02/24/2024 13:03:09 11/03/19 01 Head or Neck Surgery completed Merry [place] [facility] & [place] 03/17/2024 13:20:02 11/03/18 77 Tonsillectomy/Bruno oidectomy completed Merry RODRIGUEZ - [facility] & [place] 03/17/2024 13:20:02 extraction of wisdom tooth completed Karla RODRIGUEZ - [facility] & [place] 02/23/2024 13:23:44 Tonsillectomy completed Karla Mccarthy [place] [facility] & [place] 02/23/2024 13:24:00 Imaging Results None recorded. Procedure Notes None recorded. Medical Equipment None Reported. Allergies Allergen ID Allergen Name Allergen Category Reaction Reaction Severity Criticality Documentation Date Start Date Code Code System Note Provider Name and Address Organization Details Recorded Time 903190 Substance with sulfonami de structure and antibacte rial mechanism of action (substanc e) medicatio n hives nausea severe moderate Not available 02/24/2024 34639 8003 SNOMED JENNIFER Shin [facility] & [place] 11:13:01 770391 shellfish derived food,medi cation anaphylax is severe Not available 02/24/2024 33367 UNK JENNIFER Shin [facility] & [place] 11:15:27 Medications Name Sig Start Date Stop [...] 5 165.1 cm 98.3 [degF] 32.4 kg/m2 46696.5 1 g 74 /min 123 mm[Hg] 84 mm[Hg] Michelle Chavo [facility] & [place] 08:29:09 Social History Question Answer Notes LastModified by Organizat ion Details LastModified Time Tobacco Smoking Status Former Smoker DARREN COLEMAN MD [address] [facility], [place], [address], [facility] & [place] 05/26/2024 13:05:25 Do You Have An Advance Directive? No [email or web address] Information not available 03/17/2024 Are You Blind Or Do You Have Difficulty Seeing? No [email or web address] Information not available 03/17/2024 What Is Your Level Of Caffeine Consumption? Moderate [email or web address] Information not available 09/10/2024 When Did You Quit Smoking? 1-5yearssince cristobal arriaga Information not available 05/26/2024 What Was The Date Of Your Most Recent Tobacco Screening? 02/21/2024 [email or web address] Information not available 03/17/2024 Are You Passively Exposed To Smoke? Yes [email or web address] Information not available 03/17/2024 How Much Tobacco Do You Smoke? No [email or web address] Information not available 05/26/2024 How Many Years Have You Smoked Tobacco? 20 [email or web address] Information not available 03/17/2024 Sex: Unknown Functional Status Question Answer Note LastModified by Organizat ion Details LastModified Time Do you use any illicit or recreational drugs? No [email or web address] Information not available 02/23/2024 What is your level of alcohol consumption? Occasional [email or web address] Information not available 03/17/2024 Do you or have you ever used smokeless tobacco? Never used smokeless tobacco [email or web address] Information not available 03/17/2024 What is your exercise level? Occasional [email or web address] Information not available 03/17/2024 Mental Status Question Answer Note LastModified by Organization D etails LastModified Time Do you feel stressed (tense, restless, nervous, or anxious, or unable to sleep at night)? EQ6071-8 [email or web address] Information not available 03/17/2024 Family History Relationship [...] [email or web address] Not available 02/21/2024 13:56:52 Mother Asthma [email or web address] Not availabl e 03/21/2025 08:18:02 Father Hypertensive [...] 13:56:10 Paternal Grandfather Malignant neoplasm of lung [email or web address] Not available 03/03 08:18:02 Medical History Condition Response Diabetes Y Obesity Y High Cholesterol N Hypertension Y Gynecological History Statement/Question Response Abnormal Pap N 01/09/2024 Sexually Active? Y Menses Monthly N Date of Last Pap Smear 10/03/2022 Current Control Method IUD Obstetrics History GPAL:G 0 P 0 0 0 0 Past Encounters Encounter ID Performer Location Encounter Start Date Encounter Closed Date Diagnosis/Indication Diagnosis SNOMED-CT Code Diagnosis ICD10 Code Diagnosis Note [id number] Xavi Clements, DNP, MANAGER ADMINISTRATIVE, CAFE MANAGER-C [facility] [address] [place] [address] 03/21/2025 08:16:52 03/21/2025 09:24:23 History of bariatric surgical procedure 504661221 Z98.84 The patient is doing well. The [...] agree to comply. Intentiona l weight loss 925393881 R63.8 History of gastrectomy 885678108 Z90.3 Advised qid intake 50% protein 5785-7480 calories/d y less than 100 carbs/dy Long [...] to correct any vitamin deficienci es. At [facility] risk of nutritional deficit 492734036 Z91.89 Folic acid deficiency 19 3433583 E53.8 Hyperlipidemia 42796894 E78.5 Hypertensive disorder 38 528071 I10 Type 2 josie betes mellitus 21545724 E11.9 Vitamin D deficiency 347 33674 E55.9 Obesity 171309037 E66.9 Health Concerns Section Related Observation LastModified by Organization Detai ls LastModified Time None Recorded Concern Status LastModified by Organization Details LastModified Time None Recorded Payers Encounter Date Sequence Insurance Name Policy Number Policy Rosales Covered Member ID Rosales Member ID Guarantor Name 03/21/2025 1 [place] [id number] 1 Timothy Peace [id number] Timothy Peace Notes Date Note Type [...] = 1437 kilo calories Xavi Clements, DNP, MANAGER ADMINISTRATIVE, CAFE MANAGER-C [address], [place], [address], [facility] - [place] - [place] & [place] 03/21/2025 08:55:56 OBGyn Episode No OBEpisode recorded.
== END 2025-04-18 23:59 | disposition home or self-care (01) ==
LOC: RAD 08:44
PROVIDERS: PCP Family Medicine; Visit Provider Family Medicine
DX: E04.2 Nontoxic multinodular goiter (principal)
CPT/HCPCS: 76536